=== PATIENT | female | born 1955 | race Caucasian/White ===

== ENCOUNTER 2021-06-04 15:39 | Emergency (ER) | payer MEDICARE, BC, SELFPAY ==
[2021-06-04 15:59] VITALS: BP 127/82; PULSE 77; RESP 18; TEMP 36.1; O2SAT 98
--- NOTE | 2021-06-04 16:01 | ED.UPPEXIN ---
HPI - Extremity Injury (Upper) General Chief Complaint: Extremity Injury, Upper Stated Complaint: lt hand discoloration Time Seen by Provider: 06/04/21 16:01 Source: patient and RN notes reviewed Mode of arrival: ambulatory Limitations: no limitations History of Present Illness HPI narrative: Remy is a 66-year-old female patient who ambulated into the [facility] accompanied by her . Patient states she smashed her left hand on the washer when doing laundry. Patient states she immediately had swelling and bruising to the area. Patient is on methotrexate and prednisone daily. Patient states she bruises easily. Patient has full range of motion, patient has full sensation to her distal extremity. Review of Systems Review of Systems: CONSTITUTIONAL: Denies body aches, fever, chills, or sweats. EYES: Denies visual changes, redness, or discharge. ENT: Denies rhinorrhea, congestion, sore throat, or otalgia. CARDIOVASCULAR: Denies chest pain, palpitations, or edema. RESPIRATORY: Denies cough or dyspnea. GASTROINTESTINAL: Denies abdominal pain, nausea, vomiting, or diarrhea. GENITOURINARY: Denies dysuria or hematuria. SKIN: Denies rash, itching, or wounds, swelling and bruising to left hand dorsal hand, MUSCULOSKELETAL: Denies back pain, joint pain, or myalgia. NEUROLOGIC: Denies headache, numbness, tingling, or weakness. PSYCH: Denies depression or anxiety. All systems reviewed & are unremarkable except as noted in HPI and below PMFSH Comments At time of signature, I have reviewed and agree with nursing past medical, surgical, social and family history unless otherwise noted. Please see nursing chart for further information. There is no relevant family history pertinent to the presenting complaint Exam Narrative: GENERAL: Well-appearing, well-nourished, and in no acute distress. HEAD: Normocephalic, atraumatic. EYES: EOMI. No redness or drainage. Conjunctivae normal. ENT: Mucous membranes pink and moist. Nares clear. No rhinorrhea. NECK: Normal AROM. Supple. No lymphadenopathy. CHEST: No respiratory distress. Clear to auscultation. HEART: Regular rate and rhythm. No murmur appreciated. Normal peripheral pulses. MUSCULOSKELETAL: No bony tenderness. EXTREMITIES: Normal range of motion. dark bruising from wrist to phalanges, distal sensation and movement intact. SKIN: Warm, dry, no rash. Capillary refill normal. Normal skin turgor. NEURO: No focal deficits. Alert and oriented x3. Gait steady. PSYCH: Normal affect. No signs of depression or anxiety. Course Vital Signs Vital signs: Vital Signs Temperature 36.1 C L 06/04/21 15:59 Pulse Rate 77 06/04/21 15:59 Respiratory Rate 18 06/04/21 15:59 Blood Pressure 127/82 06/04/21 15:59 Pulse Oximetry 98 06/04/21 15:59 Temperature 36.1 C L 06/04/21 15:59 Pulse Rate 77 06/04/21 15:59 Respiratory Rate 18 06/04/21 15:59 Blood Pressure 127/82 06/04/21 15:59 Pulse Oximetry 98 06/04/21 15:59 Reviewed. Pt has been instructed to follow up with her PCP regarding her elevated blood pressure today. MDM - Extremity Injury (Upper) MDM Narrative Medical decision making narrative: Patient hit her left dorsal hand on her washer. Patient is on methotrexate and prednisone. Patient has a large hematoma on the dorsal hand. Bruising and swelling extends from the wrist to fingers. Patient was instructed to leave the pressure dressing in place. Patient instructed to follow-up with her primary care physician as needed in 7 to 10 days. Patient instructed to ice and elevate the area. Differential Diagnosis Differential diagnosis: Likely sprain and strain of wrist and other (Hematoma) Medical Records Attestation: I reviewed the patient's medical records. Critical Care Time Critical Care Time Critical Care Time: No Discharge Plan Discharge Clinical Impression: Traumatic hematoma of hand Qualifiers: Encounter type: initial encounter Laterality:
== END 2021-06-04 16:26 | disposition home or self-care (01) ==
PROVIDERS: Emergency Provider Nurse Practitioner Family
DX: S60.222A Contusion of left hand, initial encounter (principal); W22.8XXA Striking against or struck by other objects, initial encounter; I11.0 Hypertensive heart disease with heart failure; I50.9 Heart failure, unspecified; K21.9 Gastro-esophageal reflux disease without esophagitis; M06.9 Rheumatoid arthritis, unspecified; E03.9 Hypothyroidism, unspecified; F41.9 Anxiety disorder, unspecified; F32.9 Major depressive disorder, single episode, unspecified
CPT/HCPCS: 99212; G0463

== ENCOUNTER 2021-08-15 11:08 | Inpatient (IN) | payer MEDICARE, BC, SELFPAY ==
--- NOTE | ~2021-08-15 | CT_ITS ---
EXAMINATION: CT cervical spine wo con DATE: 08/15/2021 11:59 INDICATION: Head injury. TECHNIQUE: Computed tomography (CT) of the cervical spine was performed without intravenous contrast. Automated exposure control and iterative reconstruction technique were employed. The dose-length pro duct was 427.40 mGy-cm. COMPARISON: None FINDINGS: There are changes of thyroidectomy. There is 2 mm anterolisthesis of C3 on C4 and 3 mm ante rolisthesis of C4 on C5. There is kyphosis of cervical spine. There is 5 degrees levocurvature of cer vical spine and 9 degrees dextrocurvature of cervical thoracic spine. Vertebral body heights are norm al. There is severely decreased disc height at C2-C3 at C3-C4, moderately decreased disc height at C4 -C5, and severely decreased disc height from C5-C6 through C6-C7 with endplate remodeling. The follow ing disc levels are specifically discussed: C2-C3: There is mild bilateral uncovertebral joint osteoarthritis. There is severe bilateral facet cholo int osteoarthritis. There is no neural foraminal stenosis. There is no central canal stenosis. C3-C4: There is severe right and mild left uncovertebral joint osteoarthritis. There is severe bilate ral facet joint osteoarthritis. There is mild bilateral neural foraminal stenosis. There is mild cent ral canal stenosis. C4-C5: There is mild bilateral uncovertebral joint osteoarthritis. There is severe bilateral facet cholo int osteoarthritis. There is mild bilateral neural foraminal stenosis. There is mild central canal st enosis. C5-C6: There is severe bilateral uncovertebral joint osteoarthritis. There is severe bilateral facet joint osteoarthritis. There is mild left neural foraminal stenosis. There is mild central canal steno sis. C6-C7: There is moderate and severe left uncovertebral joint osteoarthritis. There is mild right and severe left facet joint osteoarthritis. There is mild left neural foraminal stenosis. There is mild c entral canal stenosis. C7-T1: There is severe bilateral uncovertebral joint osteoarthritis. There is severe bilateral facet joint osteoarthritis. There is mild bilateral neural foraminal stenosis. There is mild central canal stenosis. IMPRESSION: 1. No fracture. 2. Severe cervical spondylosis. Reviewed, dictated and finalized at location A. KER MACHINE OPERATOR
--- NOTE | ~2021-08-15 | CT_ITS ---
EXAMINATION: CT pelvis wo con DATE: 08/15/2021 14:33 INDICATION: Pelvic fractures, groin pain TECHNIQUE: Computed tomography (CT) of the pelvis was performed without intravenous contrast. Automat ed exposure control and iterative reconstruction technique were employed. Exam dose: 378.35 mGy-cm t otal exam DLP. COMPARISON: 08/15/2021 pelvis and bilateral hips FINDINGS: Status post posterior and interbody surgical fusion at L4-5. There is approximately 5 mm anterolisthesis at L4-5. Severe degenerative disc disease at L5-S1. There are old fractures of bilateral superior and inferior pubic rami. There is a recent comminuted fracture of the left pubic bone medially. Normal appendix. There is a Bullock catheter within the evacuated urinary bladder. The uterus and adnexal areas are unremarkable. Mild bilateral hip osteoarthritis. IMPRESSION: Acute comminuted fracture of the left pubic bone Bilateral old superior inferior pubic ramus fractures Reviewed, dictated and finalized at Location A. Reviewed, dictated and finalized at location A. UNITY SERVICE SPECIALIST
--- NOTE | ~2021-08-15 | XR_ITS ---
EXAMINATION: XR hip BI 2V w AP pelvis DATE: 08/15/2021 11:49 INDICATION: Left groin pain. Right-sided pain. Fall. TECHNIQUE: An anteroposterior view pelvis and 2 views of each hip were obtained. COMPARISON: None. FINDINGS: There are old fractures of the bilateral superior and inferior pubic rami. There is also an acute fracture of left superior pubic ramus. There is moderate right hip osteoarthritis and mild lef t hip osteoarthritis. There are changes of anterior and posterior fusion procedures in lumbar spine. IMPRESSION: 1. Acute fracture of left superior pubic ramus. Old fractures of the bilateral superior and inferior pubic rami. 2. Moderate right hip osteoarthritis and mild left hip osteoarthritis. Reviewed, dictated and finalized at location A. ER
--- NOTE | ~2021-08-15 | CT_ITS ---
EXAMINATION: CT brain wo con DATE: 08/15/2021 11:59 INDICATION: Head injury. TECHNIQUE: Computed tomography (CT) of the head was performed without intravenous contrast. The mA wa s adjusted according to patient size. Iterative reconstruction technique was employed. The dose-lengt h product was 681.00 mGy-cm. COMPARISON: None FINDINGS: There are scattered areas of low attenuation in the cerebral white matter. There is no intr acranial hemorrhage, acute infarction, or abnormal intracranial mass lesion. The ventricles are elle l in size. The paranasal sinuses are clear. The orbits are normal. The mastoid air cells are normal. IMPRESSION: 1. Mild nonspecific cerebral white matter disease, which likely represents chronic small vessel ische lily disease. Reviewed, dictated and finalized at location A. ENCING MACHINE OPERATOR IMPRESSION: 1. Mild nonspecific cerebral white matter disease, which likely represents polarity tester genoveva small vessel ischemic disease.
--- NOTE | ~2021-08-15 | XR_ITS ---
EXAMINATION: XR chest 2V DATE: 08/17/2021 14:53 INDICATION: Hypoxia TECHNIQUE: AP and lateral views of the chest are obtained. COMPARISON: None available FINDINGS: The lungs are free of acute opacities. There is no pleural effusion or pneumothorax. Cardio megaly is noted. There is moderate thoracic spondylosis. There are lumbar compression fractures with partially imaged changes of lumbar fusion. Surgical clips are noted in the neck, likely related to th yroidectomy. IMPRESSION: 1. Cardiomegaly. Reviewed, dictated and finalized at location B. TY JAILER IMPRESSION: 1. Cardiomegaly.
[2021-08-15 11:11] VITALS: BP 148/92; PULSE 92; RESP 20; TEMP 36.7; O2SAT 100
--- NOTE | 2021-08-15 11:48 | ED.FALL ---
HPI - Fall General Chief Complaint: Fall Stated Complaint: FALL Time Seen by Provider: 08/15/21 11:24 Source: patient and RN notes reviewed Mode of arrival: EMS Limitations: no limitations History of Present Illness HPI Narrative: This is a 66 year old female who presents from home for evaluation s/p fall . Patient states she was trying to turn when she lost her balance and she fell onto her right side. She does report hitting right forehead but she denies LOC. She also denies taking chronic anticoagulation. She reports right lateral hip pain and she also reports left groin pain. She states she was unable to bear weight due to left groin pain. She also has neck pain and EMS placed patient in C collar. Related Data Home Medications Medication Instructions Recorded Confirmed bupropion HCl [Wellbutrin XL] 150 mg PO QAM 06/04/21 08/15/21 buspirone 10 mg PO BID 06/04/21 08/15/21 citalopram 40 mg PO DAILY 06/04/21 08/15/21 ergocalciferol (vitamin D2) 1,250 mcg PO WEEKLY 06/04/21 08/15/21 famotidine 40 mg PO BID 06/04/21 08/15/21 folic acid 1 mg PO DAILY 06/04/21 08/15/21 gabapentin 300 mg PO BID 06/04/21 08/15/21 hydroxychloroquine 200 mg PO BID 06/04/21 08/15/21 levothyroxine 175 mcg PO DAILY 06/04/21 08/15/21 losartan 100 mg PO DAILY 06/04/21 08/15/21 methotrexate sodium 25 mg PO WEEKLY 06/04/21 08/15/21 prednisone 5 mg PO TID 06/04/21 08/15/21 sitagliptin [Januvia] 100 mg PO DAILY 06/04/21 08/15/21 carvedilol 3.125 mg PO DAILY 08/15/21 08/15/21 midodrine 5 mg TID 08/15/21 08/15/21 Allergies Allergy/AdvReac Type Severity Reaction Status Date / Time No Known Allergies Allergy Verified 06/04/21 16:36 Review of Systems Review of Systems: All systems reviewed & are unremarkable except as noted in HPI and below PMFSH Past Medical History Medical History (Updated 08/15/21 @ 18:44 by Carmen Brito MD) Hypertension Rheumatoid arthritis Family History Family History Mother Acute myocardial infarction Mother History of blood clots Social History Social History Smoking status: Never smoker Second hand tobacco smoke exposure: No Alcohol intake: never Substance use: never Spiritual care concerns: No Exam Const: General: no acute distress and alert Orientation/consciousness: patient oriented x3 HENMT: Head: normocephalic and other (right forehead abrasion) Face and sinus: sinuses nontender and face symmetric Mouth: Yes Normal oral and palatal mucosa present, Yes lip normal, Yes oropharynx normal and Yes moist mucous membranes Eyes: EOM: EOMs intact bilaterally Chest: Chest palpation & inspection: normal inspection of the chest Other: in cervical collar Resp: Effort & Inspection: normal respiratory effort and no retractions Auscultation: clear to auscultation bilaterally Cardio: Rate: regular rate Rhythm: regular rhythm Heart sounds: no murmurs GI: GI Palp: Yes Soft to palpation, No Tenderness to palpation present (GI) and No Guarding due to palpation present (GI) Auscultation: normal bowel sounds Skin: General skin exam: normal color Rashes: no rashes Neuro: General: patient oriented x3, moves all extremities and CN's II-XI intact bilaterally Extrem: Other: palpable bilateral pedal pulses, ; right lateral hip hematoma but able to range right leg/hip/knee; unable to flex left hip due to pain but can move foot and toes distally Psych: Mental Status: mental status grossly normal Affect: normal affect Course Consultations Consultation #1: I Discussed with Mary Ann Mane about patient. She accepts to hospitalist service for rehab and pain control Date: 08/15/21 Time: 14:03 Consultation #2: I spoke with DR. Florez (Ortho). He agrees to consult and see patient tomorrow. He recommends getting CT pelvis to evaluate for additional fractures while patient is in E
[2021-08-15 12:55] LABS: Basophils Absolute Auto 0.1 K/mm3 (0.0-0.1); Basophils Percent Auto 0.3 % (0.2-1.2); Eosinophils Absolute Auto 0.2 K/mm3 (0-0.3); Hematocrit 33.7 % (37.0-47.0); Hemoglobin 10.7 g/dL (12.0-15.0); Lymphocytes Absolute Auto 1.85 K/mm3 (0.9-3.2); Lymphocytes Percent Auto 9.6 % (18.3-44.2); Mean Corpuscular HGB Conc 31.8 g/dl (32-36); Mean Corpuscular Hemoglobin 31.4 pg (26-34); Mean Corpuscular Volume 98.8 fl (80-100); Mean Platelet Volume 10.3 fl (7.4-10.4); Monocytes Absolute Auto 1.1 K/mm3 (0.1-0.6); Monocytes Percent Auto 5.7 % (2.6-8.5); Neutrophils Absolute Auto 15.9 K/mm3 (1.3-6.7); Neutrophils Percent Auto 82.4 % (45.5-73.1); Platelet Count Result 273 k/mm3 (150-375); Red Blood Count 3.41 M/mm3 (4.2-5.4); Red Cell Distribution Width 16.3 % (11.5-14.5); White Blood Count 19.3 K/mm3 (4.5-10.0)
[2021-08-15 13:12] LABS: Alanine Aminotransferase 19 U/L (4-35); Albumin Level 3.2 g/dL (3.5-5.1); Alkaline Phosphatase 37 U/L (38-126); Anion Gap 4 mmol/L (8-16); Aspartate Amino Transferase 27 U/L (14-36); Bilirubin,Total 0.6 mg/dL (0.2-1.3); Blood Urea Nitrogen 20 mg/dL (7-17); Calcium 8.2 mg/dL (8.4-10.2); Carbon Dioxide 24 mmol/L (22-30); Chloride 109 mmol/L (98-107); Estimated CRCL calculation 67 ml/min; Estimated Glomerular Filt Rate > 60; Glucose 83 mg/dL (65-110); Potassium 3.2 mmol/L (3.4-5.0); Sodium 137 mmol/L (137-145)
[2021-08-15 13:21] LABS: Add Urine Microscopic? NO; Appearance Urine Clear (Clear); Bilirubin Urine Negative (Negative); Blood Urine Negative (Negative); Color Urine Yellow (Yellow); Glucose Urine UA Negative (Negative); Ketones Urine Negative (Negative); Leukocyte Esterase Ur Negative LEU/UL (Negative); Nitrate Urine Negative (Negative); Protein Urine Negative (Negative); Specific Grav Ur 1.018 (1.001-1.035); Urobilinogen Urine Negative mg/dL (<2.0)
--- NOTE | 2021-08-15 14:56 | PCPTNOTE ---
needs to be cleared by ortho before PT can complete evaluation.
[2021-08-15 14:59] LABS: SARS-CoV-2 RNA PCR Negative
[2021-08-15] MEDS: ONDANSETRON INJ 4 MG/2 ML VIAL IV PUSH (15:05)
[2021-08-15] MEDS: MORPHINE SULFATE (*CRX) 4 MG/ML INJ IV PUSH ×3 (15:05→22:24)
[2021-08-15 16:27] VITALS: BMI 64.0
[2021-08-15 17:09] VITALS: BP 111/56; PULSE 88; RESP 20; TEMP 36.4; O2SAT 90
--- NOTE | 2021-08-15 17:28 | PC.NURSE ---
Patient Admitted from ER post fall at home. Patient elects to be a FULL CODE. The patient is being admitted for a Pelvic Fracture. Patient is alert x4 and able to make her needs known. Patient states her pain is being well managed with the IV Morphine. Call light within reach. Admit assessment completed with no major concerns.
[2021-08-15 20:44] VITALS: BP 96/54; PULSE 79; RESP 17; TEMP 37.1; O2SAT 97
[2021-08-15 20:54] VITALS: BP 115/58
--- NOTE | 2021-08-15 23:27 | PM.IMHP ---
H&P: HPI History of Present Illness Date/Time: 08/15/212229 this is a 66-year-old female patient who has had a past medical history of having pelvic fractures in the past. The patient just recently moved here from [place] a few months ago. She stated on her right home she fractured her pelvis without any falls she just heard a a crack at that time. However today the patient did have a fall she said that she is trying to turn and she lost her balance and fell on her right side. She stated that she did hit the right side of her forehead. But she denies losing consciousness. The patient denies taking any chronic anticoagulation. The patient has the old scabbed area to right lower extremity with bruises to both of her lower extremities. Patient was also complaining of neck pain and she was placed in a C-collar for EMS the patient was unable to bear weight and was having pain to her left growing area. Her white count was noted to be 19.3 H&H 10.7 and 33.7. COVID was negative. Head CT was read as mild nonspecific cerebral white matter disease which likely represents chronic small vessel ischemic disease. Hip and pelvis was read as acute fracture of the left superior pubic ramus old fractures of the bilateral superior and inferior pubic rami. Moderate right hip osteoarthritis and mild left hip osteoarthritis. Cervical spine CT was read as no fracture. Severe cervical spondylosis. CT of the pelvis was read as acute comminuted fracture of the left pelvic bone bilateral old superior inferior pubic ramus fractures. The patient was given IV Tylenol and ordered morphine for discomfort. Although there is no surgical intervention orthopedic physician has been consulted and agrees to see the patient. The patient is being admitted to observation status on the date of service of 08/15/2021. Chief Complaint: Unable to ambulate after fall Review of Systems Review of Systems: All systems reviewed & are unremarkable except as noted in HPI and below Constitutional: Constitutional: Reports as per HPI and Reports no additional constitutional complaints Eyes: Eyes: Reports as per HPI and Reports no additional eye complaints ENT: Reports system reviewed and no additional complaints, except as documented and Reports Normal hearing present Cardiovascular: Cardiovascular: Reports no additional cardiovascular complaints Respiratory: Respiratory: Reports no additional respiratory complaints and Reports no additional respiratory complaints Gastrointestinal: Gastrointestinal: Reports as per HPI and Reports no additional gastrointestinal complaints Musculoskeletal: Musculoskeletal: Reports no additional musculoskeletal complaints Integumentary/Breasts: Skin/Breast: Reports system reviewed and no additional complaints, except as docu and Reports as per HPI Neurologic: Reports system reviewed and no additional complaints, except as documented, Reports as per HPI and Reports Normal hearing present Psychiatric: Psychiatric: Reports no additional psychiatric complaints and Reports as per HPI Endocrine: Endocrine: Reports no additional endocrine complaints Hematologic/Lymphatic: Hematologic/Lymphatic: Reports no additional hematologic/lymphatic complaints Allergic/Immunologic: Allergic/Immunologic: Reports no additional allergic/immunologic complaints [facility] Past Medical History Medical History (Updated 08/15/21 @ 23:42 by Mary Ann Mane NP) Congestive heart failure Depression with anxiety DM2 (diabetes mellitus, type 2) Graves disease Hypertension Orthostatic hypertension Rheumatoid arthritis Surgical History Surgical History (Updated 08/15/21 @ 23:36 by Mary Ann Mane NP) H/O thyroidectomy H/O tubal ligation History of back surgery History of repair of hiatal hernia Family History Family History Mother Acute myocardial infarction Mother History of blood clots Social History Socia
[2021-08-15] MEDS: ACETAMINOPHEN 325 MG TABLET PO (23:58)
[2021-08-15] MEDS: diphenhydrAMINE HCl CAP 25 MG CAPSULE PO (23:58)
[2021-08-16 00:38] VITALS: O2SAT 95
[2021-08-16 04:21] VITALS: BP 100/58; PULSE 85; RESP 17; TEMP 36.9; O2SAT 90
[2021-08-16 06:07] LABS: Basophils Absolute Auto 0.1 K/mm3 (0.0-0.1); Basophils Percent Auto 0.5 % (0.2-1.2); Eosinophils Absolute Auto 0.4 K/mm3 (0-0.3); Eosinophils Percent Auto 3.3 % (0-4.4); Hematocrit 31.9 % (37.0-47.0); Hemoglobin 10.1 g/dL (12.0-15.0); Immature Granulocyte Absolute 0.09 K/mm3 (0.00-0.031); Immature Granulocyte Percent A 0.7 % (0-0.5); Lymphocytes Absolute Auto 1.77 K/mm3 (0.9-3.2); Lymphocytes Percent Auto 13.4 % (18.3-44.2); Mean Corpuscular HGB Conc 31.7 g/dl (32-36); Mean Corpuscular Hemoglobin 31.6 pg (26-34); Mean Corpuscular Volume 99.7 fl (80-100); Mean Platelet Volume 10.2 fl (7.4-10.4); Monocytes Absolute Auto 1.1 K/mm3 (0.1-0.6); Monocytes Percent Auto 8.5 % (2.6-8.5); Neutrophils Absolute Auto 9.8 K/mm3 (1.3-6.7); Neutrophils Percent Auto 73.6 % (45.5-73.1); Platelet Count Result 257 k/mm3 (150-375); Red Cell Distribution Width 16.3 % (11.5-14.5); White Blood Count 13.2 K/mm3 (4.5-10.0)
[2021-08-16 06:25] LABS: Lactic Acid Reflex 0.7 mmol/L (0.7-2.1)
[2021-08-16 06:29] LABS: Alanine Aminotransferase 16 U/L (4-35); Alkaline Phosphatase 48 U/L (38-126); Anion Gap 2 mmol/L (8-16); Aspartate Amino Transferase 24 U/L (14-36); Bilirubin,Total 0.4 mg/dL (0.2-1.3); Blood Urea Nitrogen 21 mg/dL (7-17); Calcium 8.2 mg/dL (8.4-10.2); Carbon Dioxide 25 mmol/L (22-30); Chloride 106 mmol/L (98-107); Estimated CRCL calculation 93 ml/min; Estimated Glomerular Filt Rate > 60; Glucose 104 mg/dL (65-110); Lactate Dehydrogenase 577 U/L (313-618); Magnesium 2.2 mg/dL (1.6-2.3); Potassium 3.5 mmol/L (3.4-5.0); Sodium 133 mmol/L (137-145)
[2021-08-16] MEDS: LEVOTHYROXINE SODIUM 50 MCG TABLET PO (06:29)
[2021-08-16] MEDS: LEVOTHYROXINE SODIUM 125 MCG TABLET PO (06:29)
[2021-08-16 07:14] LABS: Hemoglobin A1C 5.6 % (<5.7)
[2021-08-16 08:00] VITALS: PULSE 85; RESP 17; O2SAT 90
[2021-08-16 08:32] LABS: Glucose Point of Care 216 mg/dl (65-105)
[2021-08-16] MEDS: MIDODRINE HCL 2.5 MG TABLET 5 MG BY MOUTH ×2 (08:35→13:07)
[2021-08-16] MEDS: busPIRone HCL 10 MG TABLET PO ×2 (08:35→17:19)
[2021-08-16] MEDS: predniSONE 5 MG TABLET PO ×3 (08:35→17:21)
[2021-08-16] MEDS: CITALOPRAM HYDROBROMIDE 20 MG TABLET 40 MG PO (08:36)
[2021-08-16] MEDS: FAMOTIDINE 20 MG TABLET 40 MG PO ×2 (08:36→17:22)
[2021-08-16] MEDS: LOSARTAN POTASSIUM 100 MG TABLET PO (08:36)
[2021-08-16] MEDS: GABAPENTIN 300 MG CAPSULE PO ×2 (08:36→20:46)
[2021-08-16] MEDS: FOLIC ACID 1 MG TABLET PO (08:36)
[2021-08-16] MEDS: HYDROXYCHLOROQUINE SULFATE 200 MG TABLET PO ×2 (08:36→17:19)
[2021-08-16 08:37] VITALS: PULSE 85
[2021-08-16] MEDS: buPROPion HCL XL (24 HR) 150 MG TABCR PO (08:37)
[2021-08-16] MEDS: carvediloL 3.125 MG TABLET PO (08:37)
[2021-08-16] MEDS: MORPHINE SULFATE (*CRX) 4 MG/ML INJ IV PUSH (09:03)
--- NOTE | 2021-08-16 10:40 | PM.CNOR ---
Assessment and Plan Additional Plan patient is a 66-year-old female who I am asked to see for evaluation of her left vertical pubic body fracture at junction of the superior pubic ramus and pubic body. She sustained this injury when she fell at home yesterday. She bumped her head she had a CT scan of the head that showed no acute change. She had CT of the cervical spine that showed advanced spondylosis changes mild multilevel central canal stenosis. She had AP pelvis x-ray which demonstrated the fracture at junction of superior pubic ramus on the left and pubic body and chronic appearing fractures of all 4 pubic rami. There was subtle superior lateral joint space narrowing of the right hip and no other abnormalities. Patient has a history of osteoporosis. She has never been treated for it. She was seen a rn renal for her rheumatoid arthritis while she lived in [place] and the rheumatoid jasson just was going to start her on osteoporosis treatment but then she moved here 3 months ago and that was never initiated. Her bone density test was 1/2 years ago and she would like to get a new 1. She does take 12844 units ergocalciferol weekly. We will check a 25 hydroxy vitamin-D level to make sure that it is in the normal desired range. For her rheumatoid arthritis she takes prednisone 5 mg daily methotrexate and hydroxychloroquine. Prednisone and methotrexate have been associated with osteoporosis. She has not been taking an oral calcium supplement she states due to her only seating this and we will initiate that here in the hospital. will initiate constipation prophylaxis also Her pubic ramus fractures occurred approximately 15 years ago and these were stress fractures and not associated with trauma. There is a high likelihood of associated osteoporosis with that diagnosis. She has also had a compression fracture in her upper back. She has been using a walker at home off and on for many years due to balance problems which have been attributed to unstable blood pressure and that is being addressed with modification of her blood pressure medications. She does have a history of chronic numbness in her feet but is never noticed weakness in the lower extremities. She did have an L4-5 decompression posterior fusion with instrumentation done approximately 7 years ago. She is noted to have anemia with hemoglobin of 10.1, normal static. This may be anemia of chronic disease or other etiology and she is having iron studies done currently. White count mildly elevated at 13.2 platelets [id number]. She has a Bullock catheter in because she did not feel she could use the bedpan or get up in time to go to the bathroom. I have advised her that there is some risk of urinary tract infection if this is left in very long and it would be best for her to have this removed as soon as possible which she would like to have it in place today at least. On physical examination today she is completely alert and oriented. Looking outer her BMI is clearly not 64.0. Think there is an error in her weight documentation. We will have the nurse reweigh her and recalculate this. she has pain medial groin left hip with range of motion left hip. She has a 2+ dorsalis pedis pulse palpable normal motor function in the left foot. She denies any back pain at this time. When physical therapy gutter up earlier today she complained of severe pain in left groin which made her somewhat nauseated. She is not having any pain in her back at that time but if she starts noticing pain in her back after she is mobilized she will let us know for consideration of additional imaging there if indicated. She reports slight diminished light touch sensation feet bilaterally. She denies any other injury. Impression: Acute comminuted left pubic body fracture. Chronic fractures bilateral inferior superior pubic rami which appear to be healed. CT did not show evidence of sacral fracture. Would recommend mobilizati
[2021-08-16] MEDS: ACETAMINOPHEN 500 MG TABLET 1000 MG PO ×2 (10:59→17:22)
[2021-08-16 11:01] LABS: Thyroid Stimulating Hormone Reflex 0.251 uIU/mL (0.465-4.68)
[2021-08-16 11:35] LABS: Free T4 Free Thyroxine Reflex 1.32 ng/dL (0.78-2.19)
[2021-08-16 11:51] LABS: Glucose Point of Care 122 mg/dl (65-105)
--- NOTE | 2021-08-16 12:28 | PM.IMPN ---
Progress Note: A&P Assessment and Plan (1) Closed fracture of left superior pubic ramus: Qualifiers: Encounter type: initial encounter Qualified Code(s): S32.512A - Fracture of superior rim of left pubis, initial encounter for closed fracture Code(s): S32.512A - Fracture of superior rim of left pubis, initial encounter for closed fracture Status: Acute Assessment and Plan: Ortho consulted, continue with supportive care Light weight bearing LLE Continue with PT and OT May benefit from acute care rehab Continue with pain management (2) DM2 (diabetes mellitus, type 2): Code(s): E11.9 - Type 2 diabetes mellitus without complications Status: Chronic Assessment and Plan: Accu-Cheks AC and HS Sliding scale insulin Continue Januvia (3) Hypertension: Code(s): I10 - Essential (primary) hypertension Status: Chronic Assessment and Plan: Soft today Continue with losartan and Coreg if blood pressure allows, adjust if needed Monitor (4) Orthostatic hypertension: Code(s): I10 - Essential (primary) hypertension Status: Chronic Assessment and Plan: With weight bearing status will check orthostatic blood pressures Continue midodrine (5) Rheumatoid arthritis: Code(s): M06.9 - Rheumatoid arthritis, unspecified Status: Chronic Assessment and Plan: Continue with prednisone and hydrochloroquine for now (6) Congestive heart failure: Code(s): I50.9 - Heart failure, unspecified Status: Chronic Assessment and Plan: Compensated Continue with losartan and Coreg if her blood pressure allows (7) Depression with anxiety: Code(s): F41.8 - Other specified anxiety disorders Status: Chronic Assessment and Plan: Continue with buspirone, bupropion, and Celexa Subjective Date/time seen: 08/16/21 12:28 Interval history: Pt seen and evaluated; labs, vs, diagnostic results, consult notes reviewed; pt continues with pain with activity Review of Systems Review of Systems: All systems reviewed & are unremarkable except as noted in HPI and below Exam Const: General: no acute distress, alert and awake Orientation/consciousness: patient oriented x3 HENMT: Head: normocephalic and atraumatic Ears: hearing grossly normal bilaterally and external ears normal Face and sinus: face symmetric Mouth: Yes Normal oral and palatal mucosa present Eyes: EOM: EOMs intact bilaterally Neck: Neck: full ROM and trachea midline Chest: Chest palpation & inspection: normal inspection of the chest Resp: Effort & Inspection: normal respiratory effort Auscultation: clear to auscultation bilaterally Cardio: Jugular venous distension: no JVD Rate: regular rate Rhythm: regular rhythm Heart sounds: S1 normal heart sound present and S2 normal heart sound present GI: GI Palp: Yes Soft to palpation Auscultation: normal bowel sounds : General: Yes no CVA tenderness Back/Spine/Pelvis: Pelvis: Other pelvic findings (complains of groin pain with change in position ) Skin: General skin exam: normal color Rashes: no rashes Neuro: General: patient oriented x3, moves all extremities and no focal motor deficits Speech: normal speech Extrem: General: no clubbing, cyanosis or edema Psych: Appearance: grossly normal Affect: normal affect Judgement: Good judgement present (Psych) Objective Data Vital Signs Vital Signs: Vital Signs - 24 hr 08/15/21 17:09 08/15/21 20:44 08/15/21 20:54 Temperature 36.4 C 37.1 C Pulse Rate 88 79 Respiratory Rate 20 17 Blood Pressure 111/56 L 96/54 L 115/58 L Pulse Oximetry 90 97 08/16/21 00:38 08/16/21 04:21 08/16/21 08:00 Temperature 36.9 C Pulse Rate 85 85 Respiratory Rate 17 17 Blood Pressure 100/58 L Pulse Oximetry 95 90 90 08/16/21 08:37 Temperature Pulse Rate 85 Respiratory Rate Blood Pressure Pulse Oximetry Intake/Output Intake/Output: In
[2021-08-16] MEDS: oxyCODONE HCL (*CRX) 5 MG TAB IR PO (12:43)
[2021-08-16 12:49] LABS: Total Triiodothyronine (T3) 0.94 NG/ML (0.97-1.69)
[2021-08-16] MEDS: oxyCODONE HCL (*CRX) 2.5 MG TAB IR PO ×3 (13:07→20:45)
[2021-08-16 14:45] VITALS: BP 138/63; PULSE 108; RESP 18; TEMP 35.9; O2SAT 92
[2021-08-16 15:05] VITALS: BMI 30.9
[2021-08-16 16:54] LABS: Glucose Point of Care 153 mg/dl (65-105)
[2021-08-16] MEDS: SENNA/DOCUSATE SODIUM TABLET 2 TAB PO (17:18)
[2021-08-16 19:58] VITALS: BP 106/61; PULSE 90; RESP 17; TEMP 36.6; O2SAT 95
[2021-08-16] MEDS: diphenhydrAMINE HCl CAP 25 MG CAPSULE PO (20:45)
[2021-08-16 23:49] LABS: Glucose Point of Care 181 mg/dl (65-105)
[2021-08-17] VITALS (8 sets, daily range): BP systolic 115–142; BP diastolic 60–74; PULSE 80–102; RESP 16–18; TEMP 36.5–37.1; O2SAT 91–96
[2021-08-17] MEDS: oxyCODONE HCL (*CRX) 2.5 MG TAB IR PO ×6 (03:34→21:43)
[2021-08-17] MEDS: LEVOTHYROXINE SODIUM 50 MCG TABLET PO (06:39)
[2021-08-17] MEDS: ACETAMINOPHEN 500 MG TABLET 1000 MG PO ×3 (06:39→17:24)
[2021-08-17] MEDS: LEVOTHYROXINE SODIUM 125 MCG TABLET PO (06:40)
[2021-08-17 06:51] LABS: Hematocrit 32.2 % (37.0-47.0); Hemoglobin 9.9 g/dL (12.0-15.0); Mean Corpuscular HGB Conc 30.7 g/dl (32-36); Mean Corpuscular Hemoglobin 31.4 pg (26-34); Mean Corpuscular Volume 102.2 fl (80-100); Mean Platelet Volume 10.5 fl (7.4-10.4); Platelet Count Result 228 k/mm3 (150-375); Red Blood Count 3.15 M/mm3 (4.2-5.4); Red Cell Distribution Width 16.2 % (11.5-14.5); White Blood Count 11.9 K/mm3 (4.5-10.0)
[2021-08-17 07:11] LABS: Anion Gap 2 mmol/L (8-16); Blood Urea Nitrogen 14 mg/dL (7-17); Calcium 8.2 mg/dL (8.4-10.2); Carbon Dioxide 27 mmol/L (22-30); Chloride 105 mmol/L (98-107); Estimated CRCL calculation 93 ml/min; Estimated Glomerular Filt Rate > 60; Glucose 120 mg/dL (65-110); Potassium 3.8 mmol/L (3.4-5.0); Sodium 134 mmol/L (137-145)
[2021-08-17 07:35] LABS: Vitamin D 25 Hydroxy 27.8 ng/mL
[2021-08-17 08:05] LABS: Glucose Point of Care 114 mg/dl (65-105)
[2021-08-17] MEDS: FAMOTIDINE 20 MG TABLET 40 MG PO ×2 (08:59→16:40)
[2021-08-17] MEDS: predniSONE 5 MG TABLET PO ×3 (08:59→16:40)
[2021-08-17] MEDS: HYDROXYCHLOROQUINE SULFATE 200 MG TABLET PO ×2 (08:59→16:39)
[2021-08-17] MEDS: buPROPion HCL XL (24 HR) 150 MG TABCR PO (08:59)
[2021-08-17] MEDS: GABAPENTIN 300 MG CAPSULE PO ×2 (09:00→21:43)
[2021-08-17] MEDS: MIDODRINE HCL 2.5 MG TABLET 5 MG BY MOUTH ×3 (09:00→16:39)
[2021-08-17] MEDS: LOSARTAN POTASSIUM 100 MG TABLET PO (09:00)
[2021-08-17] MEDS: CITALOPRAM HYDROBROMIDE 20 MG TABLET 40 MG PO (09:00)
[2021-08-17] MEDS: busPIRone HCL 10 MG TABLET PO ×2 (09:00→16:40)
[2021-08-17] MEDS: carvediloL 3.125 MG TABLET PO (09:00)
[2021-08-17] MEDS: FOLIC ACID 1 MG TABLET PO (09:01)
[2021-08-17] MEDS: ENOXAPARIN 40 MG/0.4 ML SYRINGE SUB-Q (09:01)
[2021-08-17 11:56] LABS: Glucose Point of Care 155 mg/dl (65-105)
--- NOTE | 2021-08-17 12:20 | PM.PNORT ---
Subjective Subjective Date/Time Seen: 08/17/21 12:20HD 2 alert Vit D was 27. pain is better today. Was up with PT this am in chair for 1 hour. no swelling LE. pt to cont. to work with PT, Pt would like to go home if poss. rather than rehab. cont to follow <BENJAMÍN Swanson - Last Filed: 08/17/21 12:31> Objective Data Vital Signs Vital Signs: Vital Signs - 24 hr 08/16/21 14:45 08/16/21 19:58 08/17/21 04:04 Temperature 35.9 C L 36.6 C 37.1 C Pulse Rate 108 H 90 80 Respiratory Rate 18 17 17 Blood Pressure 138/63 106/61 142/72 H Pulse Oximetry 92 95 94 08/17/21 09:00 08/17/21 09:45 08/17/21 09:50 Temperature Pulse Rate 96 102 H 102 H Respiratory Rate Blood Pressure 116/65 115/60 Pulse Oximetry <BENJAMÍN Swanson - Last Filed: 08/17/21 12:31> Intake/Output Intake/Output: Intake & Output 08/14/21 08/15/21 08/16/21 08/17/21 23:59 23:59 23:59 23:59 Intake Total 400 890 640 Output Total 1650 950 Balance 400 -760 -310 <BENJAMÍN Swanson - Last Filed: 08/17/21 12:31> Meds/Results Medications: Active Medications Generic Name Dose Route Start Last Admin Trade Name Freq PRN Reason Stop Dose Admin Acetaminophen 1,000 mg 08/16/21 12:00 08/17/21 06:39 Acetaminophen 500 Mg Tablet PO 1,000 mg Q6HR LORRIE Administration Bupropion HCl 150 mg 08/16/21 09:00 08/17/21 08:59 Bupropion Hcl Xl (24 Hr) 150 Mg Tabcr PO 150 mg QAM LORRIE Administration Buspirone HCl 10 mg 08/16/21 09:00 08/17/21 09:00 Buspirone Hcl 10 Mg Tablet PO 10 mg BID LORRIE Administration Calcium Citrate 1 tablet 08/16/21 17:00 08/17/21 09:00 Calcium Citrate 315 Mg/Vitamin D 250 Units Tab PO 1 tablet BID LORRIE Administration Carvedilol 3.125 mg 08/16/21 09:00 08/17/21 09:00 Carvedilol 3.125 Mg Tablet PO 3.125 mg DAILY LORRIE Administration Citalopram Hydrobromide 40 mg 08/16/21 09:00 08/17/21 09:00 Citalopram Hydrobromide 20 Mg Tablet PO 40 mg DAILY LORRIE Administration Dextrose 12.5 gm 08/15/21 23:40 Dextrose 50% 25 Gm/50 Ml Syringe IV PUSH PRN PRN Hypoglycemia Protocol Diphenhydramine HCl 25 mg 08/15/21 21:00 08/16/21 20:45 Diphenhydramine Hcl Cap 25 Mg Capsule PO 25 mg HS LORRIE Administration Enoxaparin Sodium 40 mg 08/17/21 09:00 08/17/21 09:01 Enoxaparin 40 Mg/0.4 Ml Syringe SUB-Q 40 mg DAILY LORRIE Administration Ergocalciferol 50,000 unit 08/22/21 09:00 Ergocalciferol 50,000 Unit Capsule PO Sa@0900 LORRIE Famotidine 40 mg 08/16/21 09:00 08/17/21 08:59 Famotidine 20 Mg Tablet PO 40 mg BID LORRIE Administration Folic Acid 1 mg 08/16/21 09:00 08/17/21 09:01 Folic Acid 1 Mg Tablet PO 1 mg DAILY LORRIE Administration Gabapentin 300 mg 08/16/21 09:00 08/17/21 09:00 Gabapentin 300 Mg Capsule PO 300 mg Q12HR LORRIE Administration Glucagon 1 mg 08/15/21 23:40 Glucagon For Inj 1 Mg Vial IM PRN PRN Hypoglycemia Protocol Glucose 15 gm 08/15/21 23:40 Glucose Oral Gel 15 Gm Of Glucse In 37.5 Gm Tube PO PRN PRN Hypoglycemia Protocol Hydroxychloroquine Sulfate 200 mg 08/16/21 08:00 08/17/21 08:59 Hydroxychloroquine Sulfate 200 Mg Tablet PO 200 mg BIDWM LORRIE Administration Dextrose 1,000 mls @ 100 mls/hr 08/15/21 23:40 Dextrose 5% 1,000 Ml IVPB PRN PRN Hypoglycemia Protocol Insulin Aspart 2 - 5 units 08/16/21 08:00 08/17/21 11:56 Insulin Aspart (*Bkc) 100 Units/Ml SUB-Q Not Given TIDWM LORRIE Protocol Levothyroxine Sodium 50 mcg 08/16/21 06:30 08/17/21 06:39 Levothyroxine Sodium 50 Mcg Tablet PO 50 mcg DAILY@0630 LORRIE Administration Levothyroxine Sodium 125 mcg 08/16/21 06:30 08/17/21 06:40 Levothyroxine Sodium 125 Mcg Tablet PO 125 mcg DAILY@0630 LORRIE Administration Losartan Potassium 100 mg 08/16/21 09:00 08/17/21 09:00 Losartan Potassium 100 Mg Tablet PO 100 mg D
--- NOTE | 2021-08-17 13:31 | P.PNIM_ITS ---
Progress Note: A&P Assessment and Plan (1) Closed fracture of left superior pubic ramus: Qualifiers: Encounter type: initial encounter Qualified Code(s): S32.512A - Fracture of superior rim of left pubis, initial encounter for closed fracture Code(s): S32.512A - Fracture of superior rim of left pubis, initial encounter for closed fracture Status: Acute Assessment and Plan: Secondary to fall. * Pelvis CT showed acute comminuted fracture of the left pubic bone * Seen in consultation by Orthopedic surgery. Elective for non operative management * Continue supportive care. Analgesics available as needed * Light partial weight-bearing of the left lower extremity * Appreciate PT/OT * Patient preference is home on discharge. Acute rehab also being considered and [facility] [place]. * Vitamin D stores are insufficient and will supplement * Remove willson catheter (2) DM2 (diabetes mellitus, type 2): Code(s): E11.9 - Type 2 diabetes mellitus without complications Status: Chronic Assessment and Plan: A1c is 5.6 * Continue Accu-Cheks, sliding scale insulin, hypoglycemic protocol * Continue home Januvia (3) Hypertension: Code(s): I10 - Essential (primary) hypertension Status: Chronic Assessment and Plan: Blood pressure reviewed and has been well controlled. Last BP 115/60 * Continue losartan and carvedilol * Monitor blood pressure trends (4) Orthostatic hypertension: Code(s): I10 - Essential (primary) hypertension Status: Chronic Assessment and Plan: No documented episodes of orthostasis * No change in blood pressure today with supine to sitting position. Unable to check in standing position due to her weight-bearing status * Continue to monitor orthostatics * Fall precautions * Continue home midodrine (5) Rheumatoid arthritis: Code(s): M06.9 - Rheumatoid arthritis, unspecified Status: Chronic Assessment and Plan: No acute issues at this time * Continue prednisone and hydroxychloroquine * Methotrexate weekly (6) Congestive heart failure: Code(s): I50.9 - Heart failure, unspecified Status: Chronic Assessment and Plan: She is clinically compensated at this time * Monitor volume status closely * Continue losartan and carvedilol (7) H/O thyroidectomy: Code(s): E89.0 - Postprocedural hypothyroidism Status: Inactive Assessment and Plan: Secondary to Graves disease. * Continue levothyroxine 175 mcg daily * TSH slightly decreased with normal T4 * Continue levothyroxine at current dose at this time but she will need repeat TSH with reflex as an outpatient in 4-6 weeks. (8) Fall: Code(s): W19.XXXA - Unspecified fall, initial encounter Status: Acute Assessment and Plan: Ground level fall in her kitchen * Reported striking her head * Head CT with no acute findings * Fall precautions implemented Subjective Date/time seen: 08/17/21 13:31 Interval history: Date of service: 08/17/2021 Nicky Alexandre is a 66-year-old female with a history of CHF in your disease, rheumatoid arthritis who is seen in follow for left pubic ramus fracture following a fall. She is doing okay today. Her pain is a little bit better controlled and then states that it is starting to subside. She felt that she worked well with therapy today. She set up in the chair today for about an hour and was able to transfer
--- NOTE | 2021-08-17 13:31 | PM.IMPN ---
Progress Note: A&P Assessment and Plan (1) Closed fracture of left superior pubic ramus: Qualifiers: Encounter type: initial encounter Qualified Code(s): S32.512A - Fracture of superior rim of left pubis, initial encounter for closed fracture Code(s): S32.512A - Fracture of superior rim of left pubis, initial encounter for closed fracture Status: Acute Assessment and Plan: Secondary to fall. Pelvis CT showed acute comminuted fracture of the left pubic bone Seen in consultation by Orthopedic surgery. Elective for non operative management Continue supportive care. Analgesics available as needed Light partial weight-bearing of the left lower extremity Appreciate PT/OT Patient preference is home on discharge. Acute rehab also being considered and she was [facility] [place]. Vitamin D stores are insufficient and will supplement Remove willson catheter (2) DM2 (diabetes mellitus, type 2): Code(s): E11.9 - Type 2 diabetes mellitus without complications Status: Chronic Assessment and Plan: A1c is 5.6 Continue Accu-Cheks, sliding scale insulin, hypoglycemic protocol Continue home Januvia (3) Hypertension: Code(s): I10 - Essential (primary) hypertension Status: Chronic Assessment and Plan: Blood pressure reviewed and has been well controlled. Last BP 115/60 Continue losartan and carvedilol Monitor blood pressure trends (4) Orthostatic hypertension: Code(s): I10 - Essential (primary) hypertension Status: Chronic Assessment and Plan: No documented episodes of orthostasis No change in blood pressure today with supine to sitting position. Unable to check in standing position due to her weight-bearing status Continue to monitor orthostatics Fall precautions Continue home midodrine (5) Rheumatoid arthritis: Code(s): M06.9 - Rheumatoid arthritis, unspecified Status: Chronic Assessment and Plan: No acute issues at this time Continue prednisone and hydroxychloroquine Methotrexate weekly (6) Congestive heart failure: Code(s): I50.9 - Heart failure, unspecified Status: Chronic Assessment and Plan: She is clinically compensated at this time Monitor volume status closely Continue losartan and carvedilol (7) H/O thyroidectomy: Code(s): E89.0 - Postprocedural hypothyroidism Status: Inactive Assessment and Plan: Secondary to Graves disease. Continue levothyroxine 175 mcg daily TSH slightly decreased with normal T4 Continue levothyroxine at current dose at this time but she will need repeat TSH with reflex as an outpatient in 4-6 weeks. (8) Fall: Code(s): W19.XXXA - Unspecified fall, initial encounter Status: Acute Assessment and Plan: Ground level fall in her kitchen Reported striking her head Head CT with no acute findings Fall precautions implemented Subjective Date/time seen: 08/17/21 13:31 Interval history: Date of service: 08/17/2021 Nicky Alexandre is a 66-year-old female with a history of CHF in your disease, rheumatoid arthritis who is seen in follow for left pubic ramus fracture following a fall. She is doing okay today. Her pain is a little bit better controlled and then states that it is starting to subside. She felt that she worked well with therapy today. She set up in the chair today for about an hour and was able to transfer back to the bed. Rated her pain as 7/10 with movement. Now that she is resting comfortably in bed she rates her pain is 3/10. Also complains of some neck discomfort related to lying in bed as well as low back pain. Denies nausea, vomiting, fever, chills, dizziness, or lightheadedness. No shortness of breath. No cough or chest pain. She still has a Willson catheter in. She is hesitant about having this removed as she is concerned as she will get to the bathroom.
[2021-08-17 15:32] LABS: Influenza Control Positive
[2021-08-17 16:43] LABS: Glucose Point of Care 179 mg/dl (65-105)
[2021-08-17] MEDS: diphenhydrAMINE HCl CAP 25 MG CAPSULE PO (21:43)
[2021-08-17 21:47] LABS: Glucose Point of Care 193 mg/dl (65-105)
[2021-08-18] MEDS: ACETAMINOPHEN 500 MG TABLET 1000 MG PO ×3 (00:36→10:18)
[2021-08-18] MEDS: oxyCODONE HCL (*CRX) 2.5 MG TAB IR PO ×4 (00:37→13:59)
[2021-08-18 05:29] LABS: Hematocrit 29.5 % (37.0-47.0); Hemoglobin 9.6 g/dL (12.0-15.0); Mean Corpuscular HGB Conc 32.5 g/dl (32-36); Mean Corpuscular Volume 98.3 fl (80-100); Mean Platelet Volume 10.6 fl (7.4-10.4); Platelet Count Result 241 k/mm3 (150-375); Red Cell Distribution Width 16.1 % (11.5-14.5); White Blood Count 12.1 K/mm3 (4.5-10.0)
[2021-08-18 05:44] LABS: Anion Gap -2 mmol/L (8-16); Blood Urea Nitrogen 16 mg/dL (7-17); Calcium 8.2 mg/dL (8.4-10.2); Carbon Dioxide 31 mmol/L (22-30); Chloride 103 mmol/L (98-107); Estimated CRCL calculation 79 ml/min; Estimated Glomerular Filt Rate > 60; Glucose 135 mg/dL (65-110); Potassium 3.8 mmol/L (3.4-5.0); Sodium 132 mmol/L (137-145)
[2021-08-18 06:00] VITALS: BP 151/75; PULSE 83; RESP 16; TEMP 36.6; O2SAT 93
[2021-08-18] MEDS: LEVOTHYROXINE SODIUM 125 MCG TABLET PO (06:57)
[2021-08-18] MEDS: LEVOTHYROXINE SODIUM 50 MCG TABLET PO (06:57)
[2021-08-18 07:55] LABS: Glucose Point of Care 123 mg/dl (65-105)
[2021-08-18 10:00] VITALS: PULSE 96; RESP 16; O2SAT 92
[2021-08-18] MEDS: FOLIC ACID 1 MG TABLET PO (10:18)
[2021-08-18] MEDS: CHOLECALCIFEROL 400 UNITS TABLET (VIT D) 800 UNITS PO (10:18)
[2021-08-18] MEDS: busPIRone HCL 10 MG TABLET PO (10:18)
[2021-08-18] MEDS: GABAPENTIN 300 MG CAPSULE PO (10:20)
[2021-08-18] MEDS: predniSONE 5 MG TABLET PO ×2 (10:20→12:12)
[2021-08-18] MEDS: HYDROXYCHLOROQUINE SULFATE 200 MG TABLET PO (10:20)
[2021-08-18] MEDS: buPROPion HCL XL (24 HR) 150 MG TABCR PO (10:20)
[2021-08-18] MEDS: LOSARTAN POTASSIUM 100 MG TABLET PO (10:20)
[2021-08-18 10:21] VITALS: PULSE 65
[2021-08-18] MEDS: carvediloL 3.125 MG TABLET PO (10:21)
[2021-08-18] MEDS: FAMOTIDINE 20 MG TABLET 40 MG PO (10:21)
[2021-08-18] MEDS: CITALOPRAM HYDROBROMIDE 20 MG TABLET 40 MG PO (10:21)
[2021-08-18] MEDS: SENNA/DOCUSATE SODIUM TABLET 2 TAB PO (10:23)
[2021-08-18] MEDS: MIDODRINE HCL 2.5 MG TABLET 5 MG BY MOUTH ×2 (10:23→12:12)
[2021-08-18] MEDS: ENOXAPARIN 40 MG/0.4 ML SYRINGE SUB-Q (10:24)
[2021-08-18 12:01] LABS: Glucose Point of Care 125 mg/dl (65-105)
--- NOTE | 2021-08-18 13:37 | P.DS_ITS ---
DS: Admitting Diagnosis Discharge Date 08/18/2021 Admitting Diagnosis Fall, pelvic fracture DS: Discharge Diagnosis Discharge Diagnosis (1) Closed fracture of left superior pubic ramus: Qualifiers: Encounter type: initial encounter Qualified Code(s): S32.512A - Fracture of superior rim of left pubis, initial encounter for closed fracture Code(s): S32.512A - Fracture of superior rim of left pubis, initial encounter for closed fracture Status: Acute Assessment and Plan: Secondary to mechanical fall. * Pelvis CT showed acute comminuted fracture of the left pubic bone * Seen in consultation by Orthopedic surgery. Elected for non operative management * Supportive care provided. Continue analgesics as needed * Light partial weight-bearing of the left lower extremity * Continue PT/OT at [facility] * Vitamin D stores are insufficient. Started on vitamin-D supplementation 800 units daily * Per Orthopedic surgery, continue Lovenox injections 40 mg q24h for 5 weeks. Follow-up in 1 month (2) Hematoma of right hip: Code(s): S70.01XA - Contusion of right hip, initial encounter Status: Acute Assessment and Plan: Secondary to fall * Hemoglobin and hematocrit remained stable * Repeat CBC in 1 week (3) DM2 (diabetes mellitus, type 2): Code(s): E11.9 - Type 2 diabetes mellitus without complications Status: Chronic Assessment and Plan: A1c is 5.6 * Managed with Accu-Cheks, sliding scale insulin, hypoglycemic protocol during admission * Continue home Januvia (4) Hypertension: Code(s): I10 - Essential (primary) hypertension Status: Chronic Assessment and Plan: Blood pressure reviewed and were well controlled. * Continue losartan and carvedilol (5) Orthostatic hypertension: Code(s): I10 - Essential (primary) hypertension Status: Chronic Assessment and Plan: History of this. No issues during her hospitalization * Fall precautions implemented * Continue home midodrine (6) Rheumatoid arthritis: Code(s): M06.9 - Rheumatoid arthritis, unspecified Status: Chronic Assessment and Plan: No acute issues at this time * Continue prednisone and hydroxychloroquine * Methotrexate weekly (7) Congestive heart failure: Code(s): I50.9 - Heart failure, unspecified Status: Chronic Assessment and Plan: Remained clinically compensated * No evidence of volume overload * Continue losartan and carvedilol (8) H/O thyroidectomy: Code(s): E89.0 - Postprocedural hypothyroidism Status: Inactive Assessment and Plan: Secondary to Graves disease. * Continue levothyroxine 175 mcg daily * TSH slightly decreased with normal T4 * Continue levothyroxine at current dose at this time but she will need repeat TSH with reflex as an outpatient in 4-6 weeks. (9) Fall: Code(s): W19.XXXA - Unspecified fall, initial encounter Status: Acute Assessment and Plan: Ground level fall in her kitchen * Reported striking her head * Head CT with no acute findings * Fall precautions implemented (10) Urinary retention: Code(s): R33.9 - Retention of urine, unspecified Status: Acute Assessment and Plan: Bullock catheter initiated following pelvic fracture * Bullock removed on 08/17/21 when mobility improved * Patient failed voiding trial and Bullock catheter was restarte
--- NOTE | 2021-08-18 13:37 | PM.DS ---
DS: Admitting Diagnosis Discharge Date 08/18/2021 Admitting Diagnosis Fall, pelvic fracture DS: Discharge Diagnosis Discharge Diagnosis (1) Closed fracture of left superior pubic ramus: Qualifiers: Encounter type: initial encounter Qualified Code(s): S32.512A - Fracture of superior rim of left pubis, initial encounter for closed fracture Code(s): S32.512A - Fracture of superior rim of left pubis, initial encounter for closed fracture Status: Acute Assessment and Plan: Secondary to mechanical fall. Pelvis CT showed acute comminuted fracture of the left pubic bone Seen in consultation by Orthopedic surgery. Elected for non operative management Supportive care provided. Continue analgesics as needed Light partial weight-bearing of the left lower extremity Continue PT/OT at [facility] Vitamin D stores are insufficient. Started on vitamin-D supplementation 800 units daily Per Orthopedic surgery, continue Lovenox injections 40 mg q24h for 5 weeks. Follow-up in 1 month (2) Hematoma of right hip: Code(s): S70.01XA - Contusion of right hip, initial encounter Status: Acute Assessment and Plan: Secondary to fall Hemoglobin and hematocrit remained stable Repeat CBC in 1 week (3) DM2 (diabetes mellitus, type 2): Code(s): E11.9 - Type 2 diabetes mellitus without complications Status: Chronic Assessment and Plan: A1c is 5.6 Managed with Accu-Cheks, sliding scale insulin, hypoglycemic protocol during admission Continue home Januvia (4) Hypertension: Code(s): I10 - Essential (primary) hypertension Status: Chronic Assessment and Plan: Blood pressure reviewed and were well controlled. Continue losartan and carvedilol (5) Orthostatic hypertension: Code(s): I10 - Essential (primary) hypertension Status: Chronic Assessment and Plan: History of this. No issues during her hospitalization Fall precautions implemented Continue home midodrine (6) Rheumatoid arthritis: Code(s): M06.9 - Rheumatoid arthritis, unspecified Status: Chronic Assessment and Plan: No acute issues at this time Continue prednisone and hydroxychloroquine Methotrexate weekly (7) Congestive heart failure: Code(s): I50.9 - Heart failure, unspecified Status: Chronic Assessment and Plan: Remained clinically compensated No evidence of volume overload Continue losartan and carvedilol (8) H/O thyroidectomy: Code(s): E89.0 - Postprocedural hypothyroidism Status: Inactive Assessment and Plan: Secondary to Graves disease. Continue levothyroxine 175 mcg daily TSH slightly decreased with normal T4 Continue levothyroxine at current dose at this time but she will need repeat TSH with reflex as an outpatient in 4-6 weeks. (9) Fall: Code(s): W19.XXXA - Unspecified fall, initial encounter Status: Acute Assessment and Plan: Ground level fall in her kitchen Reported striking her head Head CT with no acute findings Fall precautions implemented (10) Urinary retention: Code(s): R33.9 - Retention of urine, unspecified Status: Acute Assessment and Plan: Bullock catheter initiated following pelvic fracture Bullock removed on 08/17/21 when mobility improved Patient failed voiding trial and Bullock catheter was restarted Continue Bullock at rehab. She will need outpatient urology follow-up DS: Summary Hospital Course Hospital Course: Date of admission: 08/15/2021 Date of discharge: 08/18/2021 Nicky Alexandre is a 66-year-old female with a history of CHF in your disease, rheumatoid arthritis who presented to the emergency department on 08/15/2021 after suffering a fall at home and was found to have a pelvic fracture. She was admitted to the hospitalist service for further evaluation and management was seen in c
[2021-08-18 14:00] VITALS: BP 139/67; PULSE 96; RESP 16; TEMP 36.2; O2SAT 96
[2021-08-18 14:23] LABS: EDCOVIDSCREEN Negative (Negative)
[2021-08-18 15:27] VITALS: O2SAT 95
== END 2021-08-18 16:17 | DRG 536 ==
LOC: ANHED 14:20 → ANH2MED 15:16
PROVIDERS: Nurse Practitioner; Nurse Practitioner Adult Health; Orthopaedic Surgery; Admitting Provider Internal Medicine; Emergency Provider General Practice; PCP Nurse Practitioner; Visit Provider Physician Assistant
DX: S32.512A Fracture of superior rim of left pubis, initial encounter for closed fracture (principal); S70.01XA Contusion of right hip, initial encounter; W18.39XA Other fall on same level, initial encounter; E11.9 Type 2 diabetes mellitus without complications; I11.0 Hypertensive heart disease with heart failure; I50.9 Heart failure, unspecified; Z20.822 Contact with and (suspected) exposure to COVID-19; E89.0 Postprocedural hypothyroidism; R33.9 Retention of urine, unspecified; M06.9 Rheumatoid arthritis, unspecified; F41.8 Other specified anxiety disorders; M81.0 Age-related osteoporosis without current pathological fracture; D63.8 Anemia in other chronic diseases classified elsewhere
CPT/HCPCS: 36415; 70450; 71046; 72125; 72192; 73521; 80048; 80053; 81003; 82306; 82728; 82948; 83036; 83605; 83615; 83735; 84439; 84443; 84480; 85025; 85027; 87426; 87804; 96365; 96374; 96375; 96376; 97110; 97162; 97166; 97530; 97535; 99285; A9270; C9803; G0378; J0131; J1650; J2270; J2405; J7512; U0003; U0005

== ENCOUNTER 2021-09-20 14:57 | Inpatient (IN) | payer MEDICARE, BC, SELFPAY ==
--- NOTE | ~2021-09-20 | CT_ITS ---
EXAMINATION: CT abdomen pelvis wo con DATE: 09/20/2021 16:10 INDICATION: Nausea, vomiting, diarrhea and weakness. Abdominal pain. TECHNIQUE: Computed tomography (CT) of the abdomen and pelvis was performed without intravenous contr ast. The dose-length product was 566.75 mGy-cm. Automated exposure control and iterative reconstructi on technique were employed. COMPARISON: CT dated 08/15/2021. FINDINGS: Bibasilar atelectasis. No trace right pleural effusion. Small pericardial effusion. Mild ca rdiomegaly. Gallbladder is distended with gallstones. The spleen, pancreas, adrenal glands and left kidney are un remarkable. There is a 2.2 cm low-density lesion exophytic from the right kidney posteriorly, likely a cyst. There are adjacent coarse calcifications no hydronephrosis. Bladder is decompressed. No renal stones. Nonobstructive bowel gas pattern. There is a severe burst fracture of L2 with retrolisthesis into the spinal canal causing spinal stenosis. This is likely chronic. Severe lumbar spondylosis. Th ere is posterior fusion at L4-5. There is a healing comminuted fracture of the left pubic symphysis. There are bilateral chronic fractures of the superior and inferior pubic rami. IMPRESSION: 1. Gallbladder distention with gallstones. Consider cholecystitis in the appropriate clinical setting . 2: Burst fracture of L2 with associated spinal stenosis, likely chronic. Multiple pelvic fractures re identified. 3: Small right pleural effusion. 4: Small pericardial effusion. Reviewed, dictated and finalized at location A. NESS PERFORMANCE ADVISOR IMPRESSION: 1. Gallbladder distention with gallstones. Consider cholecystitis in the approp riate clinical setting. 2: Burst fracture of L2 with associated spinal stenosis, likely chronic. Multip le pelvic fractures reidentified. 3: Small right pleural effusion. 4: Small pericardial effusion.
--- NOTE | ~2021-09-20 | US_ITS ---
EXAMINATION: US renal BI DATE: 09/21/2021 17:25 INDICATION: Acute renal insufficiency TECHNIQUE: Multiple ultrasound grayscale images of the kidneys were obtained. COMPARISON: None. FINDINGS: The right kidney measures 13.0 x 4.5 x 5.7 cm. The left kidney measures 4.7 x 3.7 x 6.0 cm. The kidne ys demonstrate normal echogenicity. The region of the small calcification and exophytic lesion at the posterolateral right kidney is not clearly visualized on the provided images, likely obscured by sha dowing from the adjacent ribs. There is no hydronephrosis in either kidney. No stones identified. Th e bladder is normal. IMPRESSION: 1. Region of the exophytic lesion at the upper pole of the right kidney seen on prior CT is obscured by shadowing ribs. The visualized kidneys are normal with no hydronephrosis. Would recommend further evaluation with either pre and postcontrast MRI or CT if renal function permits, otherwise would con senior professional services consultant noncontrast MRI. Reviewed, dictated and finalized at location A. OVERHAULER IMPRESSION: 1. Region of the exophytic lesion at the upper pole of the right kidney seen o n prior CT is obscured by shadowing ribs. The visualized kidneys are normal wit h no hydronephrosis. Would recommend further evaluation with either pre and pos tcontrast MRI or CT if renal function permits, otherwise would consider noncont rast MRI.
--- NOTE | ~2021-09-20 | XR_ITS ---
EXAMINATION: XR chest 2V DATE: 09/22/2021 11:20 INDICATION: Hypoxia TECHNIQUE: AP and lateral views of the chest are obtained. COMPARISON: 09/20/2021 FINDINGS: Cardiomegaly is noted. There are mild perihilar opacities. Small pleural effusions are pres ent. Bibasilar airspace opacities are present, likely atelectasis. There is no pneumothorax. There is mild thoracic spondylosis. IMPRESSION: 1. Cardiomegaly with likely moderate pulmonary edema. 2. Small pleural effusions. Reviewed, dictated and finalized at location B. INSTRUCTOR
--- NOTE | ~2021-09-20 | NM_ITS ---
EXAMINATION: NM hepatobiliary w pharm DATE: 09/21/2021 14:08 INDICATION: Abdominal pain. COMPARISON: CT abdomen and pelvis 09/20/2021 TECHNIQUE: 4 mCi Tc-99m mebrofenin (Choletec) was administered intravenously. Scintigraphic images o f the abdomen were obtained for one hour. Then, 3 mcg sincalide (Kinevac) IV was administered, and im aging was continued for 30 minutes. FINDINGS: There is delayed clearance of radiotracer from the blood pool. There is homogeneous tracer uptake by the liver. Activity progresses to the bowel and gallbladder. Gallbladder ejection fraction (GBEF) was 8%. Note that most patients with gallbladder dysfunction have GBEF < 35%, which overlaps with the broad normal range of 10-90%. IMPRESSION: 1. Low gallbladder ejection fraction, consistent with gallbladder dysfunction and/or chronic cholecy stitis. 2. Delayed clearance of radiotracer from the blood pool, consistent with nonspecific hepatocellular d ysfunction. Reviewed, dictated and finalized at location A. RETE SMOOTHER IMPRESSION: 1. Low gallbladder ejection fraction, consistent with gallbladder dysfunction and/or chronic cholecystitis. 2. Delayed clearance of radiotracer from the blood pool, consistent with nonspe cific hepatocellular dysfunction.
--- NOTE | ~2021-09-20 | XR_ITS ---
XR chest 1V portable 09/20/2021 15:38 Indication: Fever. Recent hip surgery. Procedure: AP portable chest Comparison: 08/17/2021 Findings: Cardiomegaly. Blunting of the left lateral costophrenic recess, consistent with small effus ion. There is left basilar atelectasis. No focal pneumonia, edema or pneumothorax. There is apical pl eural thickening. There are surgical changes in the neck, consistent with prior thyroidectomy. Impression: 1: Small left pleural effusion with left basilar compressive atelectasis. 2: Cardiomegaly. Reviewed, dictated and finalized at location A. GER TAX Impression: 1: Small left pleural effusion with left basilar compressive atelectasis. 2: Cardiomegaly.
[2021-09-20 15:09] VITALS: BP 130/55; PULSE 99; RESP 18; TEMP 36.6; O2SAT 98
[2021-09-20 15:22] LABS: Glucose Point of Care 71 mg/dl (65-105)
[2021-09-20 15:26] LABS: Basophils Absolute Auto 0.2 K/mm3 (0.0-0.1); Basophils Percent Auto 0.7 % (0.2-1.2); Eosinophils Percent Auto 0.1 % (0-4.4); Hematocrit 29.7 % (37.0-47.0); Hemoglobin 9.5 g/dL (12.0-15.0); Immature Granulocyte Absolute 1.74 K/mm3 (0.00-0.031); Lymphocytes Absolute Auto 0.19 K/mm3 (0.9-3.2); Lymphocytes Percent Auto 0.9 % (18.3-44.2); Mean Corpuscular Hemoglobin 31.1 pg (26-34); Mean Corpuscular Volume 97.4 fl (80-100); Mean Platelet Volume 9.9 fl (7.4-10.4); Monocytes Absolute Auto 0.5 K/mm3 (0.1-0.6); Monocytes Percent Auto 2.4 % (2.6-8.5); Neutrophils Absolute Auto 19.2 K/mm3 (1.3-6.7); Neutrophils Percent Auto 87.9 % (45.5-73.1); Platelet Count Result 221 k/mm3 (150-375); Red Blood Count 3.05 M/mm3 (4.2-5.4); Red Cell Distribution Width 16.2 % (11.5-14.5); White Blood Count 21.9 K/mm3 (4.5-10.0)
--- NOTE | 2021-09-20 15:33 | ED.NAVMDI ---
HPI - Nausea/Vomiting/Diarrhea General Chief complaint: Nausea/Vomiting/Diarrhea <Marcelle Trevizo PA-C - Last Filed: 09/20/21 17:39> Stated complaint: N/V/D <AL Torres Last Filed: 09/20/21 17:39> Time Seen by Provider: 09/20/21 15:10 <Marcelle Trevizo PA-C - Last Filed: 09/20/21 17:39> Source: patient <AL Torres Last Filed: 09/20/21 17:39> Mode of arrival: ambulatory <AL Torres Last Filed: 09/20/21 17:39> Limitations: no limitations <AL Torres Last Filed: 09/20/21 17:39> History of Present Illness HPI Narrative: This is a 66-year-old female that presents to the emergency department for nausea, vomiting and diarrhea. Ongoing over the last 5 days. Associated with fevers. Reports her daughter is sick with similar symptoms. She is COVID vaccinated. Reports she was starting to feel quite dehydrated which prompted them to bring her in for evaluation. Denies chest pain or shortness of breath. <Marcelle Trevzio PA-C - Last Filed: 09/20/21 17:39> Related Data Home medications: Home Medications Medication Instructions Recorded Confirmed Januvia 100 mg PO DAILY 06/04/21 08/21/21 bupropion HCl [Wellbutrin XL] 150 mg PO QAM 06/04/21 08/21/21 buspirone 10 mg PO BID 06/04/21 08/21/21 citalopram 40 mg PO DAILY 06/04/21 08/21/21 famotidine 40 mg PO BID 06/04/21 08/21/21 folic acid 1 mg PO DAILY 06/04/21 08/21/21 gabapentin 300 mg PO BID 06/04/21 08/21/21 hydroxychloroquine 200 mg PO BID 06/04/21 08/21/21 levothyroxine 175 mcg PO DAILY 06/04/21 08/21/21 losartan 100 mg PO DAILY 06/04/21 08/21/21 methotrexate sodium 15 mg PO WEEKLY 06/04/21 08/21/21 prednisone 5 mg PO TID 06/04/21 08/21/21 midodrine 10 mg TID 08/15/21 08/21/21 celecoxib 200 mg PO DAILY 08/21/21 08/21/21 duloxetine 40 mg PO DAILY 08/21/21 08/21/21 ergocalciferol (vitamin D2) 1,250 mcg PO WEEKLY 08/21/21 08/21/21 hydrocodone-acetaminophen 1 tablet PO BID PRN 08/21/21 08/21/21 omeprazole 40 mg PO DAILY 08/21/21 08/21/21 baclofen 10 mg PO TID 09/20/21 calcium carbonate 600 mg PO DAILY 09/20/21 cyanocobalamin (vitamin B-12) 500 mcg PO DAILY 09/20/21 <Marcelle Trevizo PA-C - Last Filed: 09/20/21 17:39> Allergies/Adverse reactions: Allergies Allergy/AdvReac Type Severity Reaction Status Date / Time No Known Allergies Allergy Verified 06/04/21 16:36 <Marcelle Trevizo PA-C - Last Filed: 09/20/21 17:39> Review of Systems Review of Systems: CONSTITUTIONAL: Reports fever CARDIOVASCULAR: Denies chest pain, or edema. RESPIRATORY: Denies cough or dyspnea. GASTROINTESTINAL: Reports abdominal pain, nausea, vomiting, and diarrhea. GENITOURINARY: Denies dysuria NEUROLOGIC: Reports generalized weakness. <Marcelle Trevizo PA-C - Last Filed: 09/20/21 17:39> All systems reviewed & are unremarkable except as noted in HPI and below <Marcelle Trevizo PA-C - Last Filed: 09/20/21 17:39> [facility] Past Medical History Medical History: Medical History (Updated 09/20/21 @ 17:37 by Marcelle Trevizo PA-C) Congestive heart failure Depression with anxiety DM2 (diabetes mellitus, type 2) Graves disease Hypertension Orthostatic hypertension Osteoporosis Rheumatoid arthritis <Marcelle Trevizo PA-C - Last Filed: 09/20/21 17:39> Surgical History Surgical History: Surgical History H/O thyroidectomy H/O tubal ligation History of back surgery History of repair of hiatal hernia <Marcelle Trevizo PA-C - Last Filed: 09/20/21 17:39> Family History Family History: Family History Mother Acute myocardial infarction Mother History of blood clots <Marcelle Trevizo PA-C - Last Filed: 09/20/21 17:39> Social History Social History: Social History Social History: The patient has 2 children.
[2021-09-20 15:36] LABS: Alanine Aminotransferase 16 U/L (4-35); Albumin Level 2.6 g/dL (3.5-5.1); Alkaline Phosphatase 140 U/L (38-126); Anion Gap 9 mmol/L (8-16); Aspartate Amino Transferase 29 U/L (14-36); Bilirubin,Total 0.6 mg/dL (0.2-1.3); Blood Urea Nitrogen 28 mg/dL (7-17); Calcium 7.6 mg/dL (8.4-10.2); Carbon Dioxide 24 mmol/L (22-30); Chloride 104 mmol/L (98-107); Estimated CRCL calculation 22 ml/min; Estimated Glomerular Filt Rate 24; Glucose 126 mg/dL (65-110); Lipase 11 U/L (23-300); Potassium 3.3 mmol/L (3.4-5.0); Sodium 137 mmol/L (137-145)
[2021-09-20] MEDS: DEXTROSE 10% 500 ML 200 ML IV CONT (16:00)
[2021-09-20 16:12] LABS: Anisocytosis 1+ (NORMAL); Platelet Estimate Adequate (Adequate)
[2021-09-20 16:13] LABS: Stomatocytes 1+ (NORMAL)
[2021-09-20 16:16] LABS: INR 1.2; Prothrombin Time 14.5 Seconds (11.1-14.7)
[2021-09-20 16:17] LABS: Partial Thromboplastin Time 42.6 SECONDS (22.3-36.8)
[2021-09-20 16:18] LABS: Add Urine Microscopic? YES; Appearance Urine Cloudy (Clear); Bacteria Urine 3+ /hpf; Bilirubin Urine Negative (Negative); Blood Urine 2+ (Negative); Color Urine Amber (Yellow); Glucose Urine UA Negative (Negative); Ketones Urine Negative (Negative); Leukocyte Esterase Ur 3+ LEU/UL (Negative); Nitrate Urine Negative (Negative); Protein Urine 3+ mg/dL (Negative); RBC Urine 51-75 /hpf (0-2); Specific Grav Ur 1.014 (1.001-1.035); Urobilinogen Urine Negative mg/dL (<2.0); WBC Urine >75 /hpf
[2021-09-20] MEDS: SODIUM CHLORIDE 0.9% IV 500 ML 999 ML IV CONT (16:30)
[2021-09-20 16:31] LABS: Lactic Acid Reflex 2.8 mmol/L (0.7-2.1)
[2021-09-20 16:33] LABS: Influenza A QL RT-PCR Negative (Negative); Influenza B QL RT-PCR Negative (Negative); SARS-CoV-2 RNA PCR Negative
[2021-09-20 16:49] LABS: Glucose Point of Care 67 mg/dl (65-105)
[2021-09-20] MEDS: PROCHLORPERAZINE EDISYLATE 10 MG/2 ML VIAL IV PUSH (16:52)
[2021-09-20 16:55] VITALS: BP 114/52; PULSE 102; RESP 18; O2SAT 93
[2021-09-20 17:00] LABS: CRP > 45.0 mg/dL (<1.0)
--- NOTE | 2021-09-20 17:45 | PM.IMHP ---
H&P: HPI History of Present Illness Date/Time: 09/20/21 17:45 Chief Complaint: Nausea, vomiting, and diarrhea. Narrative: This is a 66-year-old female with hypertension, diabetes, hypothyroidism, rheumatoid arthritis, gastroesophageal reflux disease, anemia, depression, and anxiety who presented to the emergency department for evaluation of nausea, vomiting, and diarrhea. She was admitted to the hospitalist service at the end of July with pubic rami fractures after a fall and she spent about 10 days in rehab thereafter. She seemed to be doing okay for the 1st week and was getting about the house with the aid of a walker. Since that time she has become progressively more weak and these past 5 days she has not been feeling well. It is difficult to obtain history in that regard but from what I can gather from her , the patient has been sleeping majority of the time and has complained of significant nausea and generalized abdominal discomfort. She vomits almost immediately after eating or drinking and she has had multiple episodes of diarrhea a day. Their daughter has had congestion and cough but she is a media center director school and reports that many of her students have had GI symptoms similar to what the patient is experiencing. Additionally she has had a low-grade fever up to right around 100? F. This morning she was complaining of feeling lightheaded and dizzy and her was worried that she may fall again and thought it would be best to bring her in for evaluation. Her temperature was as high as 101.9? in the emergency department and pertinent labs include a white blood cell count of 21.9, lactic acid of 2.8, CRP of greater than 45, and a creatinine of 2.10. Her urinalysis is consistent with urinary tract infection given the patient has been experiencing dysuria. A CT of the abdomen and pelvis showed gallbladder distention with gallstones and given her exam findings cholecystitis is certainly a consideration. No evidence of pneumonia on chest x-ray. Influenza A, B, and SARS-CoV-2 by PCR were all negative. Review of Systems Review of Systems: Twelve systems were reviewed. No headache or neck ache. She denies sinus congestion, rhinorrhea, otalgia, and odynophagia. She has not had chest pain, shortness breast, or cough. No melena or hematochezia. Except as documented, all other systems were reviewed and are negative. [facility] Past Medical History Medical History (Updated 09/20/21 @ 22:51 by Izabella Gallagher PA-C) Congestive heart failure Depression with anxiety Graves disease Hypertension Hypothyroidism Orthostatic hypertension Osteoporosis Rheumatoid arthritis Type 2 diabetes mellitus Surgical History Surgical History (Updated 09/20/21 @ 22:37 by Izabella Gallagher PA-C) History of back surgery History of repair of hiatal hernia History of thyroidectomy History of tubal ligation Family History Family History Mother Acute myocardial infarction Mother History of blood clots Social History Social History (Updated 09/20/21 @ 22:38 by Izabella Gallagher PA-C) Social History: The patient is and lives with her in [facility]. They have 2 children. She is retired from [employer]. Lifelong nonsmoker. No alcohol or illicit substance abuse. She designates her , Negro Alexandre, as her surrogate decision maker and she wishes to be a full code. Meds Home Medications and Allergies Home Medications Medication Instructions Recorded Confirmed Type Januvia 100 mg PO DAILY 06/04/21 09/20/21 History bupropion HCl [Wellbutrin XL] 150 mg PO QAM 06/04/21 09/20/21 History buspirone 10 mg PO BID 06/04/21 09/20/21 History citalopram 40 mg PO DAILY 06/04/21 09/20/21 History famotidine 40 mg PO BID 06/04/21 09/20/21 History folic acid 1 mg PO DAILY 06/04/21 09/20/21 History gabapentin 300 mg PO BID 06/04/21 09/20/21 History hydroxychloroquine 200 mg PO BID
[2021-09-20] MEDS: POTASSIUM CHLORIDE INJ 40 MEQ in SODIUM CHLORIDE 0.9% IV 500 ML 130 MEQ IVPB (17:53)
[2021-09-20 18:04] LABS: Glucose Point of Care 137 mg/dl (65-105)
[2021-09-20 18:30] VITALS: BP 157/84; PULSE 108; RESP 18; O2SAT 94
--- NOTE | 2021-09-20 18:48 | PC.NURSE ---
[facility] Medical states they will not receive report for the pt until after shift change.
[2021-09-20 19:21] LABS: Reflex Lactic Acid Yes or No Add Lactic
[2021-09-20 19:48] VITALS: BP 147/77; PULSE 112; RESP 16; TEMP 38.8; O2SAT 91
--- NOTE | 2021-09-20 19:55 | ADMGEN ---
This patient, Nicky Alexandre, was admitted to 2 Medical Room 242-. Patient/family oriented to hospital policies and general routines including ID bracelet, bed and alarms, visiting hours, pain management, procedures, bathroom and other care routines, personal items, smoking policy, room service/diet, and visiting hours. Information on how to activate the Rapid Response Team has been discussed. Patient/Family are encouraged to report perceived risks to care and to ask questions if they do not understand what they are told or what they should do.
[2021-09-20 19:58] VITALS: BMI 31.6
[2021-09-20 20:11] LABS: Glucose Point of Care 92 mg/dl (65-105)
[2021-09-20 20:20] LABS: Lactic Acid 2.7 mmol/L (0.7-2.1)
[2021-09-20 20:40] VITALS: TEMP 38.6
[2021-09-20 22:00] VITALS: PULSE 116; RESP 20; TEMP 37.4; O2SAT 90
[2021-09-20] MEDS: ONDANSETRON INJ 4 MG/2 ML VIAL IV PUSH (23:01)
[2021-09-20] MEDS: SODIUM CHLORIDE 0.9% IV 1,000 ML 80 ML IV CONT (23:01)
[2021-09-20] MEDS: MORPHINE SULFATE (*CRX) 2 MG/ML INJ IV PUSH (23:01)
[2021-09-20 23:26] LABS: Anion Gap 8 mmol/L (8-16); Blood Urea Nitrogen 26 mg/dL (7-17); Calcium 7.4 mg/dL (8.4-10.2); Carbon Dioxide 21 mmol/L (22-30); Chloride 108 mmol/L (98-107); Creatine Kinase 25 U/L (30-135); Estimated CRCL calculation 24 ml/min; Estimated Glomerular Filt Rate 27; Glucose 95 mg/dL (65-110); Magnesium 1.7 mg/dL (1.6-2.3); Potassium 3.6 mmol/L (3.4-5.0); Sodium 137 mmol/L (137-145)
[2021-09-21 04:31] VITALS: BP 112/56; PULSE 87; RESP 16; TEMP 36.8; O2SAT 96
[2021-09-21 04:41] LABS: Glucose Point of Care 116 mg/dl (65-105)
[2021-09-21 05:37] LABS: Hematocrit 28.2 % (37.0-47.0); Mean Corpuscular HGB Conc 31.9 g/dl (32-36); Mean Platelet Volume 11.1 fl (7.4-10.4); Platelet Count Result 209 k/mm3 (150-375); Red Cell Distribution Width 16.8 % (11.5-14.5); White Blood Count 18.2 K/mm3 (4.5-10.0)
[2021-09-21 05:48] LABS: Alanine Aminotransferase 15 U/L (4-35); Albumin Level 2.5 g/dL (3.5-5.1); Alkaline Phosphatase 148 U/L (38-126); Anion Gap 5 mmol/L (8-16); Aspartate Amino Transferase 27 U/L (14-36); Bilirubin,Total 0.5 mg/dL (0.2-1.3); Blood Urea Nitrogen 27 mg/dL (7-17); Calcium 7.4 mg/dL (8.4-10.2); Carbon Dioxide 24 mmol/L (22-30); Chloride 107 mmol/L (98-107); Estimated CRCL calculation 23 ml/min; Estimated Glomerular Filt Rate 25; Glucose 102 mg/dL (65-110); Magnesium 1.9 mg/dL (1.6-2.3); Potassium 3.5 mmol/L (3.4-5.0); Sodium 136 mmol/L (137-145)
[2021-09-21] MEDS: LEVOTHYROXINE SODIUM 100 MCG TABLET PO (05:57)
[2021-09-21] MEDS: LEVOTHYROXINE SODIUM 75 MCG TABLET PO (05:57)
[2021-09-21] MEDS: ONDANSETRON INJ 4 MG/2 ML VIAL IV PUSH ×3 (06:04→23:14)
[2021-09-21] MEDS: MORPHINE SULFATE (*CRX) 2 MG/ML INJ IV PUSH ×2 (06:04→23:17)
[2021-09-21 06:26] LABS: Band Neutrophils Percent 11 % (0-6); Monocytes Absolute Manual 0.54 K/mm3 (0.1-0.90); Monocytes Percent Manual 3 % (3-9); Neutrophils Absolute Manual 17.65 K/mm3 (1.7-7.2); Neutrophils Percent Manual 86 % (46-73); Platelet Estimate Adequate (Adequate); Total Cells Counted 100
[2021-09-21 06:27] LABS: Anisocytosis 1+ (NORMAL); Hypochromasia 1+ (NORMAL); Poikilocytosis 1+ (NORMAL)
[2021-09-21 08:01] LABS: Glucose Point of Care 104 mg/dl (65-105)
--- NOTE | 2021-09-21 10:26 | PM.CNGS ---
Assessment and Plan Assessment and plan (1) Cholecystitis: Code(s): K81.9 - Cholecystitis, unspecified Status: Acute Assessment and Plan: CT scan reviewed and discussed with the patient in detail. There is evidence of cholelithiasis with gallbladder distention, but no other findings suggesting acute cholecystitis. The patient is having severe abdominal pain and is diffusely tender on my exam. There is a concern for acute cholecystitis being the cause of her sepsis. Will get a HIDA scan this morning to further evaluate. She would be a high-risk surgical candidate given her multiple comorbidities, sepsis, and length of symptoms. If her HIDA suggest acute cholecystitis, then we would plan on proceeding with placement of a percutaneous cholecystostomy tube. Continue IV antibiotics and NPO status for now. We will adjust her IV medications to help improve pain control. Will also add Compazine to see if this will help with her nausea. Thank you for allowing us to see the patient in consultation and we will continue to follow along with you. (2) Urinary tract infection: Qualifiers: Hematuria presence: without hematuria Urinary tract infection type: acute cystitis Qualified Code(s): N30.00 - Acute cystitis without hematuria Code(s): N39.0 - Urinary tract infection, site not specified Status: Acute Assessment and Plan: Continue IV antibiotics and management per primary service. Urine culture pending (3) Sepsis: Qualifiers: Acute renal failure type: unspecified Sepsis acute organ dysfunction status: with acute organ dysfunction Sepsis type: sepsis due to unspecified organism Severe sepsis acute organ dysfunction type: acute renal failure Severe sepsis shock status: without septic shock Qualified Code(s): A41.9 - Sepsis, unspecified organism; R65.20 - Severe sepsis without septic shock; N17.9 - Acute kidney failure, unspecified Code(s): A41.9 - Sepsis, unspecified organism Status: Acute Assessment and Plan: Sepsis criteria met on admission with leukocytosis, fever, tachycardia, and elevated lactic acid. Source unclear, urinary versus gallbladder versus combination. Urinalysis suggestive of UTI. See plan above regarding plan for cholecystitis. Continue broad-spectrum IV antibiotics, fluid resuscitation, and monitor labs. Blood cultures pending. (4) Acute kidney injury: Code(s): N17.9 - Acute kidney failure, unspecified Status: Acute Assessment and Plan: Creatinine 2.1 on admission. Continue IV fluid hydration and monitor labs. (5) Rheumatoid arthritis: Code(s): M06.9 - Rheumatoid arthritis, unspecified Status: Chronic Assessment and Plan: Agree with holding hydroxychloroquine and methotrexate given sepsis. (6) DM2 (diabetes mellitus, type 2): Code(s): E11.9 - Type 2 diabetes mellitus without complications Status: Chronic (7) Acute pericardial effusion: Code(s): I30.9 - Acute pericarditis, unspecified Status: Acute Assessment and Plan: Small pericardial effusion noted on CT. Management per primary service. (8) Hypertension: Code(s): I10 - Essential (primary) hypertension Status: Chronic (9) Hypothyroidism: Code(s): E03.9 - Hypothyroidism, unspecified Status: Acute (10) Hypokalemia: Code(s): E87.6 - Hypokalemia Status: Acute Assessment and Plan: Supplemented with KCL. K 3.5 this morning. Monitor labs. (11) Congestive heart failure: Code(s): I50.9 - Heart failure, unspecified Status: Chronic Assessment and Plan: Documented to have a hx of CHF without an echocardiogram in our records. She is from [place] and apparently moved recently. Management per Hospitalist. Would increase her risks for surgery. Additional Plan I have discussed the patient's case and plan of care with Dr. Baez. History of Present Illness Cons
[2021-09-21] MEDS: PROCHLORPERAZINE EDISYLATE 10 MG/2 ML VIAL IV PUSH (10:39)
[2021-09-21 11:57] LABS: Glucose Point of Care 119 mg/dl (65-105)
[2021-09-21] MEDS: MORPHINE SULFATE (*CRX) 4 MG/ML INJ IV PUSH ×2 (13:53→16:25)
[2021-09-21 14:00] VITALS: BP 147/82; PULSE 84; RESP 16; TEMP 36.9; O2SAT 92
[2021-09-21 14:19] VITALS: BMI 31.6
[2021-09-21] MEDS: GABAPENTIN 300 MG CAPSULE PO (16:24)
[2021-09-21] MEDS: busPIRone HCL 10 MG TABLET PO (16:24)
[2021-09-21] MEDS: predniSONE 5 MG TABLET PO (16:24)
[2021-09-21 16:32] LABS: Glucose Point of Care 114 mg/dl (65-105)
--- NOTE | 2021-09-21 16:36 | P.PNIM_ITS ---
Progress Note: A&P Assessment and Plan (1) Sepsis: Qualifiers: Acute renal failure type: unspecified Sepsis acute organ dysfunction status: with acute organ dysfunction Sepsis type: sepsis due to unspecified or ganism Severe sepsis acute organ dysfunction type: acute renal failure Severe sepsis shock status: without septic shock Qualified Code(s): A41.9 - Sepsis, unspecified organism; R65.20 - Severe sepsis without septic shock; N17.9 - Acute kidney failure, unspecified Code(s): A41.9 - Sepsis, unspecified organism Status: Acute Assessment and Plan: Patient septic on admission with fever, leukocytosis, lactic acidosis, and MERCEDEZ related to sepsis. Source of infection UTI vs acute cholecystitis or combination * Lactic acid levels have normalized * Leukocytosis mildly improved * T-max at this facility 101.9. Patient is afebrile today * Preliminary blood cultures with Gram variable bacilli * Continue Zosyn * Will add Unasyn (renally dosed) for Gram-positive coverage while awaiting further identification from blood cultures * Vancomycin avoided due to patient's acute kidney failure (2) Urinary tract infection: Qualifiers: Hematuria presence: without hematuria Urinary tract infection type: acute cystitis Qualified Code(s): N30.00 - Acute cystitis without hematuria Code(s): N39.0 - Urinary tract infection, site not specified Status: Acute Assessment and Plan: Urine culture is pending * Continue IV Zosyn and Unasyn while awaiting final cultures (3) Acute kidney injury: Code(s): N17.9 - Acute kidney failure, unspecified Status: Acute Assessment and Plan: Multifactorial in etiology to include sepsis and hypovolemia from dehydration in the setting of losartan and Celebrex use. * Creatinine baseline is 0.5-0.7. Creatinine on presentation was 2.1 * Minimal improvement today with creatinine 2.0 * Continue with cautious IV fluid rehydration, monitoring volume status closely in light of patient's history of CHF * Consider nephrology consultation if worsening/no further improvement * Will obtain renal ultrasound * Hold losartan. * Renally dose medications and avoid nephrotoxins (4) Cholecystitis: Code(s): K81.9 - Cholecystitis, unspecified Status: Acute Assessment and Plan: CT of the abdomen and pelvis shows gallbladder distention with gallstones * Patient reports diffuse abdominal pain * HIDA scan today showed low gallbladder ejection fraction consistent with gallbladder dysfunction and/or chronic cholecystitis * Appreciate general surgery consultation * Advanced to clear liquid diet per General surgery * Continue IV Zosyn (5) Hypokalemia: Code(s): E87.6 - Hypokalemia Status: Acute Assessment and Plan: Resolved. Potassium is 3.5 today (6) Hypoglycemia: Code(s): E16.2 - Hypoglycemia, unspecified Status: Acute Assessment and Plan: Random glucose was reportedly in the mid 60s in the emergency department though this is not documented in her electronic medical records. Continue Accu-Cheks and hypoglycemic protocol. (7) Rheumatoid arthritis: Code(s): M06.9 - Rheumatoid arthritis, unspecified Status: Chronic Assessment and Plan: No acute issues. * Hydroxychloroquine and methotrexate on hold given sepsis. (8) Hypertension: Code(s): I10 - Essential (primary) hypertension Status: Chronic Assessment and Plan: Blood pressures were reviewed and they are
--- NOTE | 2021-09-21 16:36 | PM.IMPN ---
Progress Note: A&P Assessment and Plan (1) Sepsis: Qualifiers: Acute renal failure type: unspecified Sepsis acute organ dysfunction status: with acute organ dysfunction Sepsis type: sepsis due to unspecified organism Severe sepsis acute organ dysfunction type: acute renal failure Severe sepsis shock status: without septic shock Qualified Code(s): A41.9 - Sepsis, unspecified organism; R65.20 - Severe sepsis without septic shock; N17.9 - Acute kidney failure, unspecified Code(s): A41.9 - Sepsis, unspecified organism Status: Acute Assessment and Plan: Patient septic on admission with fever, leukocytosis, lactic acidosis, and MERCEDEZ related to sepsis. Source of infection UTI vs acute cholecystitis or combination Lactic acid levels have normalized Leukocytosis mildly improved T-max at this facility 101.9. Patient is afebrile today Preliminary blood cultures with Gram variable bacilli Continue Zosyn Will add Unasyn (renally dosed) for Gram-positive coverage while awaiting further identification from blood cultures Vancomycin avoided due to patient's acute kidney failure (2) Urinary tract infection: Qualifiers: Hematuria presence: without hematuria Urinary tract infection type: acute cystitis Qualified Code(s): N30.00 - Acute cystitis without hematuria Code(s): N39.0 - Urinary tract infection, site not specified Status: Acute Assessment and Plan: Urine culture is pending Continue IV Zosyn and Unasyn while awaiting final cultures (3) Acute kidney injury: Code(s): N17.9 - Acute kidney failure, unspecified Status: Acute Assessment and Plan: Multifactorial in etiology to include sepsis and hypovolemia from dehydration in the setting of losartan and Celebrex use. Creatinine baseline is 0.5-0.7. Creatinine on presentation was 2.1 Minimal improvement today with creatinine 2.0 Continue with cautious IV fluid rehydration, monitoring volume status closely in light of patient's history of CHF Consider nephrology consultation if worsening/no further improvement Will obtain renal ultrasound Hold losartan. Renally dose medications and avoid nephrotoxins (4) Cholecystitis: Code(s): K81.9 - Cholecystitis, unspecified Status: Acute Assessment and Plan: CT of the abdomen and pelvis shows gallbladder distention with gallstones Patient reports diffuse abdominal pain HIDA scan today showed low gallbladder ejection fraction consistent with gallbladder dysfunction and/or chronic cholecystitis Appreciate general surgery consultation Advanced to clear liquid diet per General surgery Continue IV Zosyn (5) Hypokalemia: Code(s): E87.6 - Hypokalemia Status: Acute Assessment and Plan: Resolved. Potassium is 3.5 today (6) Hypoglycemia: Code(s): E16.2 - Hypoglycemia, unspecified Status: Acute Assessment and Plan: Random glucose was reportedly in the mid 60s in the emergency department though this is not documented in her electronic medical records. Continue Accu-Cheks and hypoglycemic protocol. (7) Rheumatoid arthritis: Code(s): M06.9 - Rheumatoid arthritis, unspecified Status: Chronic Assessment and Plan: No acute issues. Hydroxychloroquine and methotrexate on hold given sepsis. (8) Hypertension: Code(s): I10 - Essential (primary) hypertension Status: Chronic Assessment and Plan: Blood pressures were reviewed and they are stable. Last BP 147/82 Monitor closely as losartan is being held due to acute kidney injury. (9) Hypothyroidism: Code(s): E03.9 - Hypothyroidism, unspecified Status: Acute Assessment and Plan: TSH is within normal limits Continue levothyroxine (10) Type 2 diabetes mellitus: Code(s): E11.9 - Type 2 diabetes mellitus without complications Status: Acute Assessment and
[2021-09-21] MEDS: AMPICILLIN SULB 3 GM/NS 100 ML 3 GM/100 ML VIAL IVPB (18:14)
[2021-09-21 20:00] VITALS: PULSE 101; RESP 22; O2SAT 95
[2021-09-21 20:08] VITALS: BP 120/70; PULSE 101; RESP 22; TEMP 36.4; O2SAT 95
[2021-09-21] MEDS: SODIUM CHLORIDE 0.9% IV 1,000 ML 80 ML IV CONT (20:38)
[2021-09-21 21:02] LABS: Glucose Point of Care 155 mg/dl (65-105)
[2021-09-22] VITALS (8 sets, daily range): BP systolic 110–136; BP diastolic 66–90; PULSE 102–122; RESP 18; TEMP 36–36.8; O2SAT 87–96
[2021-09-22] MEDS: MORPHINE SULFATE (*CRX) 4 MG/ML INJ IV PUSH ×2 (01:06→04:20)
[2021-09-22] MEDS: AMPICILLIN SULB 3 GM/NS 100 ML 3 GM/100 ML VIAL IVPB (05:34)
[2021-09-22] MEDS: LEVOTHYROXINE SODIUM 100 MCG TABLET PO (05:37)
[2021-09-22] MEDS: LEVOTHYROXINE SODIUM 75 MCG TABLET PO (05:37)
[2021-09-22 05:52] LABS: Hematocrit 32.1 % (37.0-47.0); Hemoglobin 9.9 g/dL (12.0-15.0); Mean Corpuscular HGB Conc 30.8 g/dl (32-36); Mean Corpuscular Hemoglobin 30.1 pg (26-34); Mean Corpuscular Volume 97.6 fl (80-100); Mean Platelet Volume 10.9 fl (7.4-10.4); Platelet Count Result 196 k/mm3 (150-375); Red Blood Count 3.29 M/mm3 (4.2-5.4); Red Cell Distribution Width 16.7 % (11.5-14.5); White Blood Count 18.3 K/mm3 (4.5-10.0)
[2021-09-22 06:08] LABS: Alanine Aminotransferase 17 U/L (4-35); Albumin Level 2.5 g/dL (3.5-5.1); Alkaline Phosphatase 164 U/L (38-126); Anion Gap 9 mmol/L (8-16); Aspartate Amino Transferase 33 U/L (14-36); Bilirubin,Total 0.5 mg/dL (0.2-1.3); Blood Urea Nitrogen 25 mg/dL (7-17); Carbon Dioxide 20 mmol/L (22-30); Chloride 108 mmol/L (98-107); Estimated CRCL calculation 33 ml/min; Estimated Glomerular Filt Rate 38; Glucose 161 mg/dL (65-110); Potassium 3.5 mmol/L (3.4-5.0); Sodium 137 mmol/L (137-145)
[2021-09-22] MEDS: ONDANSETRON INJ 4 MG/2 ML VIAL IV PUSH ×2 (06:27→15:44)
[2021-09-22 07:56] LABS: Glucose Point of Care 158 mg/dl (65-105)
[2021-09-22] MEDS: PANTOPRAZOLE 40 MG TABLET PO (08:18)
[2021-09-22] MEDS: predniSONE 5 MG TABLET PO ×3 (08:18→17:00)
[2021-09-22] MEDS: GABAPENTIN 300 MG CAPSULE PO ×2 (08:19→16:58)
[2021-09-22] MEDS: CYANOCOBALAMIN 500 MCG TABLET PO (08:19)
[2021-09-22] MEDS: CALCIUM CARBONATE (OSCAL) 500 MG TABLET PO (08:19)
[2021-09-22] MEDS: FOLIC ACID 1 MG TABLET PO (08:19)
[2021-09-22] MEDS: carvediloL 3.125 MG TABLET PO (08:20)
[2021-09-22] MEDS: DULoxetine HCL 20 MG CAPSULE.DR 40 MG PO (08:20)
[2021-09-22] MEDS: CITALOPRAM HYDROBROMIDE 20 MG TABLET 40 MG PO (08:20)
[2021-09-22] MEDS: buPROPion HCL XL (24 HR) 150 MG TABCR PO (08:20)
[2021-09-22] MEDS: busPIRone HCL 10 MG TABLET PO ×2 (08:20→16:58)
[2021-09-22] MEDS: LIDOCAINE 5% PATCH 1 PATCH TRANSDERM (08:21)
[2021-09-22] MEDS: HYDROcodone/acetaminophen (*CRX) 5-325 MG TABLET 1 TAB PO ×2 (09:37→18:25)
--- NOTE | 2021-09-22 10:15 | P.PNIM_ITS ---
Progress Note: A&P Assessment and Plan (1) Septicemia: Code(s): A41.9 - Sepsis, unspecified organism Status: Acute Assessment and Plan: Patient septic on admission with fever, leukocytosis, tachycardia, lactic acidosis, and MERCEDEZ related to sepsis. Source of infection is most likely UTI * Lactic acid levels have normalized * Leukocytosis and tachycardia persists * T-max at this facility 101.9. Afebrile today * Blood cultures with growth of E. coli in 2/2 bottles, consistent with results of urine culture * Reviewed results via phone with [employer]. Report urine culture is sensitive to Ceftriaxone; [facility] to fax results * Will begin 2 g IV ceftriaxone for bacteremia. * Await final results of blood cultures (2) Urinary tract infection: Qualifiers: Hematuria presence: without hematuria Urinary tract infection type: acute cystitis Qualified Code(s): N30.00 - Acute cystitis without hematuria Code(s): N39.0 - Urinary tract infection, site not specified Status: Acute Assessment and Plan: Urine culture with growth of >100k E. coli, sensitive to ceftriaxone * Begin ceftriaxone 2 g (3) Acute kidney injury: Code(s): N17.9 - Acute kidney failure, unspecified Status: Acute Assessment and Plan: Multifactorial in etiology to include sepsis and hypovolemia from dehydration in the setting of losartan and Celebrex use. * Creatinine baseline is 0.5-0.7. Creatinine on presentation was 2.1 * Improving today with creatinine 1.4 * Will dc IV fluids given patients new oxygen requirement and hx of CHF, renal function is improving and she is tolerating PO intake * Hold losartan. * Renally dose medications and avoid nephrotoxins (4) Cholecystitis: Code(s): K81.9 - Cholecystitis, unspecified Status: Acute Assessment and Plan: CT of the abdomen and pelvis shows gallbladder distention with gallstones * Patient reported diffuse abdominal pain - improving today * HIDA scan today showed low gallbladder ejection fraction consistent with gallbladder dysfunction and/or chronic cholecystitis * Appreciate general surgery consultation * Clear liquid diet; advance per General surgery * Starting on ceftriaxone as above, will add flagyl for coverage * Adjusted analgesics given her overall improvement as well as drowsiness on exam. Avoid/limit narcotics. (5) Hypokalemia: Code(s): E87.6 - Hypokalemia Status: Acute Assessment and Plan: Resolved. Potassium is 3.5 today (6) Rheumatoid arthritis: Code(s): M06.9 - Rheumatoid arthritis, unspecified Status: Chronic Assessment and Plan: No acute issues. * Hydroxychloroquine and methotrexate on hold given sepsis. (7) Hypertension: Code(s): I10 - Essential (primary) hypertension Status: Chronic Assessment and Plan: Blood pressures were reviewed and they are stable. Last BP 126/71 * Monitor closely as losartan is being held due to acute kidney injury. (8) Hypothyroidism: Code(s): E03.9 - Hypothyroidism, unspecified Status: Acute Assessment and Plan: TSH is within normal limits * Continue levothyroxine (9) Type 2 diabetes mellitus: Code(s): E11.9 - Type 2 diabetes mellitus without complications Status: Acute Assessment and Plan: A1c 5.7 one month ago * Patient noted to have random glucose in the 60s on presentation * Continue with low-dose sliding scale insulin as needed, Accu-Cheks, and hypoglycemi
--- NOTE | 2021-09-22 10:15 | PM.IMPN ---
Progress Note: A&P Assessment and Plan (1) Septicemia: Code(s): A41.9 - Sepsis, unspecified organism Status: Acute Assessment and Plan: Patient septic on admission with fever, leukocytosis, tachycardia, lactic acidosis, and MERCEDEZ related to sepsis. Source of infection is most likely UTI Lactic acid levels have normalized Leukocytosis and tachycardia persists T-max at this facility 101.9. Afebrile today Blood cultures with growth of E. coli in 2/2 bottles, consistent with results of urine culture Reviewed results via phone with [employer]. Report urine culture is sensitive to Ceftriaxone; [facility] to fax results Will begin 2 g IV ceftriaxone for bacteremia. Await final results of blood cultures (2) Urinary tract infection: Qualifiers: Hematuria presence: without hematuria Urinary tract infection type: acute cystitis Qualified Code(s): N30.00 - Acute cystitis without hematuria Code(s): N39.0 - Urinary tract infection, site not specified Status: Acute Assessment and Plan: Urine culture with growth of >100k E. coli, sensitive to ceftriaxone Begin ceftriaxone 2 g (3) Acute kidney injury: Code(s): N17.9 - Acute kidney failure, unspecified Status: Acute Assessment and Plan: Multifactorial in etiology to include sepsis and hypovolemia from dehydration in the setting of losartan and Celebrex use. Creatinine baseline is 0.5-0.7. Creatinine on presentation was 2.1 Improving today with creatinine 1.4 Will dc IV fluids given patients new oxygen requirement and hx of CHF, renal function is improving and she is tolerating PO intake Hold losartan. Renally dose medications and avoid nephrotoxins (4) Cholecystitis: Code(s): K81.9 - Cholecystitis, unspecified Status: Acute Assessment and Plan: CT of the abdomen and pelvis shows gallbladder distention with gallstones Patient reported diffuse abdominal pain - improving today HIDA scan today showed low gallbladder ejection fraction consistent with gallbladder dysfunction and/or chronic cholecystitis Appreciate general surgery consultation Clear liquid diet; advance per General surgery Starting on ceftriaxone as above, will add flagyl for coverage Adjusted analgesics given her overall improvement as well as drowsiness on exam. Avoid/limit narcotics. (5) Hypokalemia: Code(s): E87.6 - Hypokalemia Status: Acute Assessment and Plan: Resolved. Potassium is 3.5 today (6) Rheumatoid arthritis: Code(s): M06.9 - Rheumatoid arthritis, unspecified Status: Chronic Assessment and Plan: No acute issues. Hydroxychloroquine and methotrexate on hold given sepsis. (7) Hypertension: Code(s): I10 - Essential (primary) hypertension Status: Chronic Assessment and Plan: Blood pressures were reviewed and they are stable. Last BP 126/71 Monitor closely as losartan is being held due to acute kidney injury. (8) Hypothyroidism: Code(s): E03.9 - Hypothyroidism, unspecified Status: Acute Assessment and Plan: TSH is within normal limits Continue levothyroxine (9) Type 2 diabetes mellitus: Code(s): E11.9 - Type 2 diabetes mellitus without complications Status: Acute Assessment and Plan: A1c 5.7 one month ago Patient noted to have random glucose in the 60s on presentation Continue with low-dose sliding scale insulin as needed, Accu-Cheks, and hypoglycemic protocol. (10) Hypoxia: Code(s): R09.02 - Hypoxemia Status: Acute Assessment and Plan: Noted to be hypoxic down to 87% this morning Currently requiring 2 L supplemental O2 per nasal cannula May be related to volume overload vs atelectasis Will obtain CXR Incentive spirometry Monitor O2 saturations and wean O2 as tolerated (11) Abnormal CT scan, kidney: Code(s): R93.429 - Abnormal radiologic findings
[2021-09-22 11:53] LABS: Glucose Point of Care 187 mg/dl (65-105)
[2021-09-22] MEDS: cefTRIAXone 2 GM in SODIUM CHLORIDE 0.9% IV 100 ML 200 ML IVPB (12:29)
--- NOTE | 2021-09-22 13:10 | PM.PNGS ---
Progress Note: A&P Assessment and Plan (1) Cholecystitis: Code(s): K81.9 - Cholecystitis, unspecified Status: Acute Assessment and Plan: HIDA showed low EF of 8%, more suggestive of chronic cholecystitis. This does not appear to be the source of her sepsis. Clinically improving. Will start advancing her to a low fat diet. (2) Sepsis: Qualifiers: Acute renal failure type: unspecified Sepsis acute organ dysfunction status: with acute organ dysfunction Sepsis type: sepsis due to unspecified organism Severe sepsis acute organ dysfunction type: acute renal failure Severe sepsis shock status: without septic shock Qualified Code(s): A41.9 - Sepsis, unspecified organism; R65.20 - Severe sepsis without septic shock; N17.9 - Acute kidney failure, unspecified Code(s): A41.9 - Sepsis, unspecified organism Status: Acute Assessment and Plan: Urinary is likely the source. HIDA scan showed a low EF of 8%, but does not suggest acute cholecystitis. See plan above. Continue IV abx. Trend labs. Blood cx NGTD. IV fluids have been stopped given her respiratory issues and pulmonary edema. Management per Hospitalist. (3) Urinary tract infection: Qualifiers: Hematuria presence: without hematuria Urinary tract infection type: acute cystitis Qualified Code(s): N30.00 - Acute cystitis without hematuria Code(s): N39.0 - Urinary tract infection, site not specified Status: Acute Assessment and Plan: Urine cx growing Ecoli, abx per primary service. Additional Plan I have discussed the patient's case and plan of care with Dr. Baez. Subjective Subjective Date/Time Seen: 09/22/21 09:45 Patient reports: pain is less, flatus, bowel movement and nausea Interval history: Patient seen and examined. She appears much more comfortable when entering the room today. She reports still having some abdominal pain in the center of her abdomen, but this is much improved. She also reports the nausea has improved and she has not vomited since around 10 pm last night. She had some clear liquids for breakfast and tolerated this. She has had some new onset shortness of breath and the nurse has had to increase her oxygen to 2 liters nasal cannula. The nurse told me she had put a call out to the Hospitalist to discuss her respiratory status. Exam Const: General: comfortable, no acute distress and alert Orientation/consciousness: patient oriented x3 Resp: Effort & Inspection: tachypneic Auscultation: crackles and wheezes expiratory wheezes GI: Inspection: non-distended GI Palp: Yes Soft to palpation, Yes Tenderness to palpation present (GI) (generalized tenderness throughout), No Guarding due to palpation present (GI) and No Rebound tenderness present Auscultation: normal bowel sounds Rectal Exam: deferred Neuro: General: moves all extremities and no focal motor deficits Extrem: General: no pedal edema and no calf tenderness Psych: Insight: Good insight present (Psych) Judgement: Good judgement present (Psych) Objective Data Vital Signs Vital Signs: Vital Signs - 24 hr 09/21/21 14:00 09/21/21 20:00 09/21/21 20:08 Temperature 98.5 F 97.5 F L Pulse Rate 84 101 H 101 H Respiratory Rate 16 22 H 22 H Blood Pressure 147/82 H 120/70 Pulse Oximetry 92 95 95 09/22/21 04:12 09/22/21 04:22 09/22/21 08:16 Temperature 96.8 F L Pulse Rate 122 H 122 H Respiratory Rate 18 18 Blood Pressure 126/71 Pulse Oximetry 94 94 87 L 09/22/21 08:17 09/22/21 12:08 Temperature Pulse Rate Respiratory Rate Blood Pressure Pulse Oximetry 91 95 Intake/Output Intake/Output: Intake & Output 09/19/21 09/20/21 09/21/21 09/22/21 23:59 23:59 23:59 23:59 Intake Total 1200 1890 1386 Output Total 50 Balance 1200 1840 1386 Meds/Results Medications: Active Medications Generic Name Dose Route Start Last Admin Trade Name Freq PRN Reason Stop Dose Admin Acetaminophen
[2021-09-22] MEDS: metroNIDAZOLE 500 MG/ISO 100ML 500 MG/100 ML BAG 100 MG IVPB ×2 (14:21→21:23)
[2021-09-22 16:20] LABS: Glucose Point of Care 170 mg/dl (65-105)
[2021-09-22 21:56] LABS: Glucose Point of Care 152 mg/dl (65-105)
[2021-09-23] MEDS: HYDROcodone/acetaminophen (*CRX) 5-325 MG TABLET 1 TAB PO ×2 (00:49→08:08)
[2021-09-23 05:02] VITALS: BP 154/72; PULSE 120; RESP 20; TEMP 36.1; O2SAT 92
[2021-09-23] MEDS: metroNIDAZOLE 500 MG/ISO 100ML 500 MG/100 ML BAG 100 MG IVPB ×3 (05:06→22:25)
[2021-09-23 05:27] LABS: Hemoglobin 10.2 g/dL (12.0-15.0); Mean Corpuscular HGB Conc 31.9 g/dl (32-36); Mean Corpuscular Hemoglobin 30.3 pg (26-34); Mean Platelet Volume 11.4 fl (7.4-10.4); Platelet Count Result 230 k/mm3 (150-375); Red Blood Count 3.37 M/mm3 (4.2-5.4); Red Cell Distribution Width 16.4 % (11.5-14.5); White Blood Count 21.2 K/mm3 (4.5-10.0)
[2021-09-23 05:40] LABS: Anion Gap 8 mmol/L (8-16); Blood Urea Nitrogen 27 mg/dL (7-17); Calcium 8.7 mg/dL (8.4-10.2); Carbon Dioxide 22 mmol/L (22-30); Chloride 103 mmol/L (98-107); Estimated CRCL calculation 38 ml/min; Estimated Glomerular Filt Rate 45; Glucose 140 mg/dL (65-110); Potassium 3.7 mmol/L (3.4-5.0); Sodium 133 mmol/L (137-145)
[2021-09-23] MEDS: LEVOTHYROXINE SODIUM 75 MCG TABLET PO (06:11)
[2021-09-23] MEDS: LEVOTHYROXINE SODIUM 100 MCG TABLET PO (06:11)
[2021-09-23 07:53] LABS: Glucose Point of Care 140 mg/dl (65-105)
[2021-09-23] MEDS: ONDANSETRON INJ 4 MG/2 ML VIAL IV PUSH (08:07)
[2021-09-23] MEDS: PANTOPRAZOLE 40 MG TABLET PO (08:08)
[2021-09-23] MEDS: carvediloL 3.125 MG TABLET PO (08:08)
[2021-09-23] MEDS: FOLIC ACID 1 MG TABLET PO (08:08)
[2021-09-23] MEDS: predniSONE 5 MG TABLET PO ×3 (08:08→16:25)
[2021-09-23] MEDS: DULoxetine HCL 20 MG CAPSULE.DR 40 MG PO (08:08)
[2021-09-23] MEDS: CALCIUM CARBONATE (OSCAL) 500 MG TABLET PO (08:08)
[2021-09-23] MEDS: CYANOCOBALAMIN 500 MCG TABLET PO (08:08)
[2021-09-23] MEDS: busPIRone HCL 10 MG TABLET PO ×2 (08:08→16:25)
[2021-09-23] MEDS: CITALOPRAM HYDROBROMIDE 20 MG TABLET 40 MG PO (08:09)
[2021-09-23] MEDS: LIDOCAINE 5% PATCH 1 PATCH TRANSDERM (08:09)
[2021-09-23] MEDS: buPROPion HCL XL (24 HR) 150 MG TABCR PO (08:09)
[2021-09-23] MEDS: GABAPENTIN 300 MG CAPSULE PO ×2 (08:09→16:26)
--- NOTE | 2021-09-23 09:01 | PM.PNGS ---
Progress Note: A&P Assessment and Plan (1) Cholecystitis: Code(s): K81.9 - Cholecystitis, unspecified Status: Acute Assessment and Plan: chronic and not actively contributing to current issues, cont low fat diet, no acute surgical issues, will sign off, call c ?s, issues (2) Urinary tract infection: Qualifiers: Hematuria presence: without hematuria Urinary tract infection type: acute cystitis Qualified Code(s): N30.00 - Acute cystitis without hematuria Code(s): N39.0 - Urinary tract infection, site not specified Status: Acute Assessment and Plan: cont abx, increasing leukocytosis (3) Sepsis: Qualifiers: Acute renal failure type: unspecified Sepsis acute organ dysfunction status: with acute organ dysfunction Sepsis type: sepsis due to unspecified organism Severe sepsis acute organ dysfunction type: acute renal failure Severe sepsis shock status: without septic shock Qualified Code(s): A41.9 - Sepsis, unspecified organism; R65.20 - Severe sepsis without septic shock; N17.9 - Acute kidney failure, unspecified Code(s): A41.9 - Sepsis, unspecified organism Status: Acute Assessment and Plan: secondary to UTI, cont abx Subjective Subjective Date/Time Seen: 09/23/21 09:01 feels ok, no abd pain but poor appetite, some mild nausea Review of Systems Review of Systems: All systems reviewed & are unremarkable except as noted in HPI and below Exam Const: General: cooperative, no acute distress and ill appearing Orientation/consciousness: patient oriented x3 Resp: Auscultation: clear to auscultation bilaterally Cardio: Rate: tachycardic Rhythm: regular rhythm GI: Inspection: normal to inspection and non-distended GI Palp: Yes Soft to palpation, No Tenderness to palpation present (GI), No Guarding due to palpation present (GI) and No Rigid due to palpation Objective Data Vital Signs Vital Signs: Vital Signs - 24 hr 09/22/21 12:08 09/22/21 14:05 09/22/21 20:00 Temperature 36.4 C L Pulse Rate 102 H 105 H Respiratory Rate 18 18 Blood Pressure 136/90 Pulse Oximetry 95 95 96 09/22/21 20:31 09/23/21 05:02 Temperature 36.8 C 36.1 C L Pulse Rate 105 H 120 H Respiratory Rate 18 20 Blood Pressure 110/66 154/72 H Pulse Oximetry 96 92 Intake/Output Intake/Output: Intake & Output 09/20/21 09/21/21 09/22/21 09/23/21 23:59 23:59 23:59 23:59 Intake Total 1200 1890 2226 610 Output Total 50 500 Balance 1200 1840 1726 610 Meds/Results Medications: Active Medications Generic Name Dose Route Start Last Admin Trade Name Freq PRN Reason Stop Dose Admin Acetaminophen 650 mg 09/22/21 09:04 Acetaminophen 325 Mg Tablet PO Q4H PRN Pain 1-5 Hydrocodone Bitart/Acetaminophen 1 tab 09/22/21 09:04 09/23/21 08:08 Hydrocodone/Acetaminophen (*Crx) 5-325 Mg Tablet PO 1 tab Q6H PRN Administration Pain Rated 6-10 Bupropion HCl 150 mg 09/21/21 09:00 09/23/21 08:09 Bupropion Hcl Xl (24 Hr) 150 Mg Tabcr PO 150 mg QAM LORRIE Administration Buspirone HCl 10 mg 09/21/21 09:00 09/23/21 08:08 Buspirone Hcl 10 Mg Tablet PO 10 mg BID LORRIE Administration Calcium Carbonate 500 mg 09/21/21 09:00 09/23/21 08:08 Calcium Carbonate (Oscal) 500 Mg Tablet PO 500 mg QAM LORRIE Administration Carvedilol 3.125 mg 09/21/21 09:00 09/23/21 08:08 Carvedilol 3.125 Mg Tablet PO 3.125 mg DAILY LORRIE Administration Citalopram Hydrobromide 40 mg 09/21/21 09:00 09/23/21 08:09 Citalopram Hydrobromide 20 Mg Tablet PO 40 mg DAILY LORRIE Administration Cyanocobalamin 500 mcg 09/21/21 09:00 09/23/21 08:08 Cyanocobalamin 500 Mcg Tablet PO 500 mcg DAILY LORRIE Administration Dextrose 12.5 gm 09/20/21 17:22 Dextrose 50% 25 Gm/50 Ml Syringe IV PUSH PRN PRN Hypoglycemia Protocol Duloxetine HCl 40 mg 09/21/21 09:00 09/23/21 08:08 Duloxetine Hcl [address]Dr Isidro
--- NOTE | 2021-09-23 11:19 | WPDCDIQUERY2 ---
CDI Query Clarification Request 09/20-ER physician documented: Clinical Impression: Acute kidney injury, Hypoglycemia, Acute pericardial effusion, Acute hypokalemia -Abdomen/Pelvis CT 09/20/21 16:13 IMPRESSION: 1. Gallbladder distention with gallstones. Consider cholecystitis in the appropriate clinical setting. 2: Burst fracture of L2 with associated spinal stenosis, likely chronic. Multiple pelvic fractures reidentified. 3: Small right pleural effusion. 4: Small pericardial effusion. 09/21-General Surgery documents: -Acute pericardial effusion- - Acute pericarditis, unspecified - Assessment and Plan: -Small pericardial effusion noted on CT. Management per primary service. For coding purposes: Please clarify if diagnosis of Acute Pleural Effusion and/or Acute Pericarditis has been ruled in or ruled out or if unable to determine.
[2021-09-23] MEDS: cefTRIAXone 2 GM in SODIUM CHLORIDE 0.9% IV 100 ML 200 ML IVPB (11:20)
[2021-09-23 11:59] LABS: Glucose Point of Care 149 mg/dl (65-105)
[2021-09-23 13:38] VITALS: BP 124/75; PULSE 102; RESP 18; TEMP 36.8; O2SAT 93
--- NOTE | 2021-09-23 14:53 | P.PNIM_ITS ---
Progress Note: A&P Assessment and Plan (1) Septicemia: Code(s): A41.9 - Sepsis, unspecified organism Status: Acute Assessment and Plan: Patient septic on admission with fever, leukocytosis, tachycardia, lactic acidosis, and MERCEDEZ related to sepsis. Source of infection is most likely UTI * Lactic acid levels have normalized * Persistent leukocytosis. WBC 21.2 today * T-max at this facility 101.9. Afebrile >48 hrs * Blood cultures with growth of E. coli in 2/2 bottles, consistent with results of urine culture * Urine and blood cultures with sensitivity to Ceftriaxone * Continue 2 g IV ceftriaxone for bacteremia. * Check lactic acid, procalcitonin, and CRP (2) Urinary tract infection: Qualifiers: Hematuria presence: without hematuria Urinary tract infection type: acute cystitis Qualified Code(s): N30.00 - Acute cystitis without hematuria Code(s): N39.0 - Urinary tract infection, site not specified Status: Acute Assessment and Plan: Urine culture with growth of >100k E. coli, sensitive to ceftriaxone * Continue ceftriaxone 2 g (3) Diarrhea: Code(s): R19.7 - Diarrhea, unspecified Status: Acute Assessment and Plan: Patient with onset of incontinent watery diarrhea today * In light of increased leukocytosis, will initiate fidaxomicin and monitor the patient for progression * Begin probiotics * Monitor stool output and overall volume status (4) Acute kidney injury: Code(s): N17.9 - Acute kidney failure, unspecified Status: Acute Assessment and Plan: Multifactorial in etiology to include sepsis and hypovolemia from dehydration in the setting of losartan and Celebrex use. * Creatinine baseline is 0.5-0.7. Creatinine on presentation was 2.1 * Improving today with creatinine 1.2 * Overall improvement with IV fluids. Discontinued 09/22/2021 due to pulmonary edema. Encourage p.o. intake * Hold losartan. * Renally dose medications and avoid nephrotoxins (5) Cholecystitis: Code(s): K81.9 - Cholecystitis, unspecified Status: Acute Assessment and Plan: CT of the abdomen and pelvis shows gallbladder distention with gallstones * Patient reported diffuse abdominal pain which has not resolved * HIDA scan today showed low gallbladder ejection fraction consistent with gallbladder dysfunction and/or chronic cholecystitis * Appreciate general surgery consultation * Continue low-fat diet * Continue Flagyl * No surgical intervention required at this time. Will need outpatient follow- up. (6) Hypokalemia: Code(s): E87.6 - Hypokalemia Status: Acute Assessment and Plan: Resolved. Potassium is 3.7 today (7) Rheumatoid arthritis: Code(s): M06.9 - Rheumatoid arthritis, unspecified Status: Chronic Assessment and Plan: No acute issues. * Hydroxychloroquine and methotrexate on hold given sepsis. (8) Hypertension: Code(s): I10 - Essential (primary) hypertension Status: Chronic Assessment and Plan: Blood pressures were reviewed and they are stable. Last BP 124/75 * Monitor closely as losartan is being held due to acute kidney injury. (9) Hypothyroidism: Code(s): E03.9 - Hypothyroidism, unspecified Status: Acute Assessment and Plan: TSH is within normal limits * Continue levothyroxine (10) Type 2 diabetes mellitus: Code(s): E11.9 - Type 2 diabetes mellitus without complications Stat
--- NOTE | 2021-09-23 14:53 | PM.IMPN ---
Progress Note: A&P Assessment and Plan (1) Septicemia: Code(s): A41.9 - Sepsis, unspecified organism Status: Acute Assessment and Plan: Patient septic on admission with fever, leukocytosis, tachycardia, lactic acidosis, and MERCEDEZ related to sepsis. Source of infection is most likely UTI Lactic acid levels have normalized Persistent leukocytosis. WBC 21.2 today T-max at this facility 101.9. Afebrile >48 hrs Blood cultures with growth of E. coli in 2/2 bottles, consistent with results of urine culture Urine and blood cultures with sensitivity to Ceftriaxone Continue 2 g IV ceftriaxone for bacteremia. Check lactic acid, procalcitonin, and CRP (2) Urinary tract infection: Qualifiers: Hematuria presence: without hematuria Urinary tract infection type: acute cystitis Qualified Code(s): N30.00 - Acute cystitis without hematuria Code(s): N39.0 - Urinary tract infection, site not specified Status: Acute Assessment and Plan: Urine culture with growth of >100k E. coli, sensitive to ceftriaxone Continue ceftriaxone 2 g (3) Diarrhea: Code(s): R19.7 - Diarrhea, unspecified Status: Acute Assessment and Plan: Patient with onset of incontinent watery diarrhea today In light of increased leukocytosis, will initiate fidaxomicin and monitor the patient for progression Begin probiotics Monitor stool output and overall volume status (4) Acute kidney injury: Code(s): N17.9 - Acute kidney failure, unspecified Status: Acute Assessment and Plan: Multifactorial in etiology to include sepsis and hypovolemia from dehydration in the setting of losartan and Celebrex use. Creatinine baseline is 0.5-0.7. Creatinine on presentation was 2.1 Improving today with creatinine 1.2 Overall improvement with IV fluids. Discontinued 09/22/2021 due to pulmonary edema. Encourage p.o. intake Hold losartan. Renally dose medications and avoid nephrotoxins (5) Cholecystitis: Code(s): K81.9 - Cholecystitis, unspecified Status: Acute Assessment and Plan: CT of the abdomen and pelvis shows gallbladder distention with gallstones Patient reported diffuse abdominal pain which has not resolved HIDA scan today showed low gallbladder ejection fraction consistent with gallbladder dysfunction and/or chronic cholecystitis Appreciate general surgery consultation Continue low-fat diet Continue Flagyl No surgical intervention required at this time. Will need outpatient follow-up. (6) Hypokalemia: Code(s): E87.6 - Hypokalemia Status: Acute Assessment and Plan: Resolved. Potassium is 3.7 today (7) Rheumatoid arthritis: Code(s): M06.9 - Rheumatoid arthritis, unspecified Status: Chronic Assessment and Plan: No acute issues. Hydroxychloroquine and methotrexate on hold given sepsis. (8) Hypertension: Code(s): I10 - Essential (primary) hypertension Status: Chronic Assessment and Plan: Blood pressures were reviewed and they are stable. Last BP 124/75 Monitor closely as losartan is being held due to acute kidney injury. (9) Hypothyroidism: Code(s): E03.9 - Hypothyroidism, unspecified Status: Acute Assessment and Plan: TSH is within normal limits Continue levothyroxine (10) Type 2 diabetes mellitus: Code(s): E11.9 - Type 2 diabetes mellitus without complications Status: Acute Assessment and Plan: A1c 5.7 one month ago Patient noted to have random glucose in the 60s on presentation Continue with low-dose sliding scale insulin as needed, Accu-Cheks, and hypoglycemic protocol. (11) Abnormal CT scan, kidney: Code(s): R93.429 - Abnormal radiologic findings on diagnostic imaging of unspecified kidney Status: Acute Assessment and Plan: CT abdomen/pelvis on presentation showed 2.2 cm low-density exophyti
[2021-09-23 16:02] LABS: Lactic Acid Reflex 2.2 mmol/L (0.7-2.1)
[2021-09-23] MEDS: FUROSEMIDE INJ 40 MG/4 ML VIAL 20 MG IV PUSH (16:24)
[2021-09-23 16:25] LABS: CRP 19.6 mg/dL (<1.0)
[2021-09-23] MEDS: SACCHAROMYCES BOULARDII 250 MG CAPSULE PO (16:26)
[2021-09-23 16:31] LABS: Glucose Point of Care 197 mg/dl (65-105)
[2021-09-23 17:01] LABS: Procalcitonin 3.9 ng/mL
[2021-09-23 18:47] LABS: Reflex Lactic Acid Yes or No Add Lactic
[2021-09-23 19:16] LABS: Lactic Acid 1.8 mmol/L (0.7-2.1)
[2021-09-23 19:45] VITALS: PULSE 105; O2SAT 92
[2021-09-23 19:50] VITALS: BP 141/89; PULSE 100; RESP 16; TEMP 36.5; O2SAT 96
[2021-09-23 20:00] VITALS: O2SAT 96
[2021-09-23] MEDS: FIDAXOMICIN 200 MG TABLET PO (20:05)
[2021-09-23 20:28] LABS: Glucose Point of Care 183 mg/dl (65-105)
[2021-09-24 02:00] VITALS: O2SAT 96
[2021-09-24 05:17] LABS: Basophils Absolute Auto 0.1 K/mm3 (0.0-0.1); Basophils Percent Auto 0.4 % (0.2-1.2); Eosinophils Percent Auto 0.1 % (0-4.4); Hematocrit 30.4 % (37.0-47.0); Hemoglobin 10.1 g/dL (12.0-15.0); Immature Granulocyte Absolute 0.24 K/mm3 (0.00-0.031); Immature Granulocyte Percent A 1.3 % (0-0.5); Immature Platelet Fraction Pct 7.5 % (0.9-11.2); Lymphocytes Absolute Auto 1.06 K/mm3 (0.9-3.2); Lymphocytes Percent Auto 5.5 % (18.3-44.2); Mean Corpuscular HGB Conc 33.2 g/dl (32-36); Mean Corpuscular Hemoglobin 29.5 pg (26-34); Mean Corpuscular Volume 88.9 fl (80-100); Mean Platelet Volume 11.8 fl (7.4-10.4); Monocytes Absolute Auto 1.9 K/mm3 (0.1-0.6); Monocytes Percent Auto 9.7 % (2.6-8.5); Neutrophils Absolute Auto 15.9 K/mm3 (1.3-6.7); Nucleated Red Blood Cells Perc 0.1 % (0.0-0.2); Platelet Count Result 223 k/mm3 (150-375); Red Blood Count 3.42 M/mm3 (4.2-5.4); White Blood Count 19.1 K/mm3 (4.5-10.0)
[2021-09-24] MEDS: metroNIDAZOLE 500 MG/ISO 100ML 500 MG/100 ML BAG 100 MG IVPB ×3 (05:39→21:46)
[2021-09-24 05:55] LABS: Anion Gap 10 mmol/L (8-16); Blood Urea Nitrogen 29 mg/dL (7-17); Calcium 8.5 mg/dL (8.4-10.2); Carbon Dioxide 22 mmol/L (22-30); Chloride 103 mmol/L (98-107); Estimated CRCL calculation 49 ml/min; Estimated Glomerular Filt Rate > 60; Glucose 141 mg/dL (65-110); Potassium 3.9 mmol/L (3.4-5.0); Sodium 135 mmol/L (137-145)
[2021-09-24 06:00] VITALS: BP 119/73; PULSE 100; RESP 16; TEMP 36.7; O2SAT 91
[2021-09-24] MEDS: LEVOTHYROXINE SODIUM 75 MCG TABLET PO (06:13)
[2021-09-24] MEDS: LEVOTHYROXINE SODIUM 100 MCG TABLET PO (06:13)
[2021-09-24 07:46] LABS: CRP 15.1 mg/dL (<1.0)
[2021-09-24 07:50] LABS: Glucose Point of Care 119 mg/dl (65-105)
[2021-09-24] MEDS: predniSONE 5 MG TABLET PO ×3 (08:27→16:38)
[2021-09-24 08:28] VITALS: PULSE 113
[2021-09-24] MEDS: buPROPion HCL XL (24 HR) 150 MG TABCR PO (08:28)
[2021-09-24] MEDS: carvediloL 3.125 MG TABLET PO (08:28)
[2021-09-24] MEDS: CALCIUM CARBONATE (OSCAL) 500 MG TABLET PO (08:28)
[2021-09-24] MEDS: busPIRone HCL 10 MG TABLET PO ×2 (08:28→16:38)
[2021-09-24] MEDS: CITALOPRAM HYDROBROMIDE 20 MG TABLET 40 MG PO (08:30)
[2021-09-24] MEDS: FOLIC ACID 1 MG TABLET PO (08:31)
[2021-09-24] MEDS: DULoxetine HCL 20 MG CAPSULE.DR 40 MG PO (08:31)
[2021-09-24] MEDS: LIDOCAINE 5% PATCH 1 PATCH TRANSDERM (08:31)
[2021-09-24] MEDS: PANTOPRAZOLE 40 MG TABLET PO (08:31)
[2021-09-24] MEDS: FIDAXOMICIN 200 MG TABLET PO ×2 (08:31→20:38)
[2021-09-24] MEDS: GABAPENTIN 300 MG CAPSULE PO ×2 (08:31→16:38)
[2021-09-24] MEDS: SACCHAROMYCES BOULARDII 250 MG CAPSULE PO ×2 (08:32→16:38)
[2021-09-24] MEDS: CYANOCOBALAMIN 500 MCG TABLET PO (08:32)
--- NOTE | 2021-09-24 08:51 | PCPTNOTE ---
Patient refused treatment this session due to just getting cleaned up with nursing and would like to rest.
--- NOTE | 2021-09-24 11:04 | PCPTNOTE ---
Patient refused treatment this session due to having diarrhea this AM and patient reported she just feels weak.
[2021-09-24 11:13] LABS: Glucose Point of Care 163 mg/dl (65-105)
--- NOTE | 2021-09-24 11:35 | PCNFU ---
Addendum entered by Melinda Erickson RD, LDN 09/24/21 12:03: Call back from MD, orders for Banatrol Plus TID. Original Note: Nutrition Follow-Up Complete: Inadequate Oral Intake as related to N/V as evidenced by NPO Goal; Meet estimated nutritional needs Patient progressing towards goal. We will continue current goal. Pt current nutrition is Low Fat with Ensure Compact BID. Last recorded weight is 75.2 kg, up from 73.4 kg on admit. Bowel Motility:+BM reported 09/24-Diarrhea. Labs Reviewed:Glu 141, BUN 29, Na 135, Hct 30.4,Hgb 10.1 Meds Noted:Flagyl,Florastor,Coreg, Synthroid, Neurontin, Lidoderm,Wellbutrin,Protonix, Prednisone,Buspar, Lidoderm. Skin: WNL Additional Notes:Patient currently on Low Fat diet. Spoke with patient today, she has not been eating much of solid foods. Drinking her Ensure and drinks from her trays. She is having large amounts of diarrhea. Recommend: Banatrol Plus TID for stool bulking. Call has been placed to MD for orders. Monitoring: Will continue to monitor every 3 days.
[2021-09-24] MEDS: cefTRIAXone 2 GM in SODIUM CHLORIDE 0.9% IV 100 ML 200 ML IVPB (12:02)
--- NOTE | 2021-09-24 12:33 | PCCCNOTE ---
On 09/24/21, the student, [Lissa Garrett], provided care and completed [facility] documentation on this patient. I have reviewed the student's documentation and agree with the findings.
[2021-09-24] MEDS: LOPERAMIDE HCL 2 MG CAPSULE 4 MG PO (12:52)
--- NOTE | 2021-09-24 13:17 | PCPTNOTE ---
Patient refused treatment this session due to not feeling well.
--- NOTE | 2021-09-24 13:54 | P.PNIM_ITS ---
Progress Note: A&P Assessment and Plan (1) Septicemia: Code(s): A41.9 - Sepsis, unspecified organism Status: Acute Assessment and Plan: Patient septic on admission with fever, leukocytosis, tachycardia, lactic acidosis, and MERCEDEZ related to sepsis. Source of infection is most likely UTI * Lactic acid levels have normalized * Persistent leukocytosis. WBC 21.2 today * T-max at this facility 101.9. Afebrile >48 hrs * Blood cultures with growth of E. coli in 2/2 bottles, consistent with results of urine culture * Urine and blood cultures with sensitivity to Ceftriaxone * Continue 2 g IV ceftriaxone for bacteremia. * Continue to trend Lactic acid, CRP and Procalcitonin. (2) Urinary tract infection: Qualifiers: Hematuria presence: without hematuria Urinary tract infection type: acute cystitis Qualified Code(s): N30.00 - Acute cystitis without hematuria Code(s): N39.0 - Urinary tract infection, site not specified Status: Acute Assessment and Plan: Urine culture with growth of >100k E. coli, sensitive to ceftriaxone * Continue ceftriaxone 2 g (3) Diarrhea: Qualifiers: Diarrhea type: infectious Qualified Code(s): A09 - Infectious gastroenteritis and colitis, unspecified Code(s): R19.7 - Diarrhea, unspecified Status: Acute Assessment and Plan: Patient with onset of incontinent watery diarrhea today * In light of increased leukocytosis, will initiate fidaxomicin and monitor the patient for progression * Begin probiotics * Monitor stool output and overall volume status * Banatrol Plus is started TID by dietary. * Will continue to monitor labs and vital signs. (4) Acute kidney injury: Code(s): N17.9 - Acute kidney failure, unspecified Status: Resolved Assessment and Plan: - Resolved today with Creatinine of 0.90 and BUN of 29. GFR is >60. * Renally dose medications and avoid nephrotoxins (5) Cholecystitis: Code(s): K81.9 - Cholecystitis, unspecified Status: Acute Assessment and Plan: CT of the abdomen and pelvis shows gallbladder distention with gallstones * Patient reported diffuse abdominal pain which has not resolved * HIDA scan today showed low gallbladder ejection fraction consistent with gallbladder dysfunction and/or chronic cholecystitis * Appreciate general surgery consultation * Continue low-fat diet * Continue Flagyl * No surgical intervention required at this time. Will need outpatient follow- up. (6) Hypokalemia: Code(s): E87.6 - Hypokalemia Status: Acute Assessment and Plan: Resolved. Potassium is 3.9 today. (7) Rheumatoid arthritis: Qualifiers: Rheumatoid arthritis location: unspecified site Rheumatoid factor presence: unspecified presence Qualified Code(s): M06.9 - Rheumatoid arthritis, unspecified Code(s): M06.9 - Rheumatoid arthritis, unspecified Status: Chronic Assessment and Plan: No acute issues. * Hydroxychloroquine and methotrexate on hold given sepsis. (8) Hypertension: Qualifiers: Hypertension type: unspecified Qualified Code(s): I10 - Essential (primary) hypertension Code(s): I10 - Essential (primary) hypertension Status: Chronic Assessment and Plan: Blood pressures were reviewed and they are stable. Last BP 119/73 * Monitor closely as losartan is being held due to acute kidney injury. (9) Hypothyroidism: Qualifiers: Hypothyroidism
--- NOTE | 2021-09-24 13:54 | PM.IMPN ---
Progress Note: A&P Assessment and Plan (1) Septicemia: Code(s): A41.9 - Sepsis, unspecified organism Status: Acute Assessment and Plan: Patient septic on admission with fever, leukocytosis, tachycardia, lactic acidosis, and MERCEDEZ related to sepsis. Source of infection is most likely UTI Lactic acid levels have normalized Persistent leukocytosis. WBC 21.2 today T-max at this facility 101.9. Afebrile >48 hrs Blood cultures with growth of E. coli in 2/2 bottles, consistent with results of urine culture Urine and blood cultures with sensitivity to Ceftriaxone Continue 2 g IV ceftriaxone for bacteremia. Continue to trend Lactic acid, CRP and Procalcitonin. (2) Urinary tract infection: Qualifiers: Hematuria presence: without hematuria Urinary tract infection type: acute cystitis Qualified Code(s): N30.00 - Acute cystitis without hematuria Code(s): N39.0 - Urinary tract infection, site not specified Status: Acute Assessment and Plan: Urine culture with growth of >100k E. coli, sensitive to ceftriaxone Continue ceftriaxone 2 g (3) Diarrhea: Qualifiers: Diarrhea type: infectious Qualified Code(s): A09 - Infectious gastroenteritis and colitis, unspecified Code(s): R19.7 - Diarrhea, unspecified Status: Acute Assessment and Plan: Patient with onset of incontinent watery diarrhea today In light of increased leukocytosis, will initiate fidaxomicin and monitor the patient for progression Begin probiotics Monitor stool output and overall volume status Banatrol Plus is started TID by dietary. Will continue to monitor labs and vital signs. (4) Acute kidney injury: Code(s): N17.9 - Acute kidney failure, unspecified Status: Resolved Assessment and Plan: - Resolved today with Creatinine of 0.90 and BUN of 29. GFR is >60. Renally dose medications and avoid nephrotoxins (5) Cholecystitis: Code(s): K81.9 - Cholecystitis, unspecified Status: Acute Assessment and Plan: CT of the abdomen and pelvis shows gallbladder distention with gallstones Patient reported diffuse abdominal pain which has not resolved HIDA scan today showed low gallbladder ejection fraction consistent with gallbladder dysfunction and/or chronic cholecystitis Appreciate general surgery consultation Continue low-fat diet Continue Flagyl No surgical intervention required at this time. Will need outpatient follow-up. (6) Hypokalemia: Code(s): E87.6 - Hypokalemia Status: Acute Assessment and Plan: Resolved. Potassium is 3.9 today. (7) Rheumatoid arthritis: Qualifiers: Rheumatoid arthritis location: unspecified site Rheumatoid factor presence: unspecified presence Qualified Code(s): M06.9 - Rheumatoid arthritis, unspecified Code(s): M06.9 - Rheumatoid arthritis, unspecified Status: Chronic Assessment and Plan: No acute issues. Hydroxychloroquine and methotrexate on hold given sepsis. (8) Hypertension: Qualifiers: Hypertension type: unspecified Qualified Code(s): I10 - Essential (primary) hypertension Code(s): I10 - Essential (primary) hypertension Status: Chronic Assessment and Plan: Blood pressures were reviewed and they are stable. Last BP 119/73 Monitor closely as losartan is being held due to acute kidney injury. (9) Hypothyroidism: Qualifiers: Hypothyroidism type: unspecified Qualified Code(s): E03.9 - Hypothyroidism, unspecified Code(s): E03.9 - Hypothyroidism, unspecified Status: Acute Assessment and Plan: TSH is within normal limits Continue levothyroxine (10) Type 2 diabetes mellitus: Qualifiers: Diabetes mellitus mcfp insulin use: unspecified m[facility]p insulin use status Diabetes mellitus complication status: without complication Qualified Code(s): E1
[2021-09-24 14:59] VITALS: BP 134/78; PULSE 103; RESP 16; TEMP 36.2; O2SAT 94
[2021-09-24 16:47] LABS: Glucose Point of Care 169 mg/dl (65-105)
[2021-09-24 17:02] LABS: Glucose Point of Care 211 mg/dl (65-105)
[2021-09-24] MEDS: ACETAMINOPHEN 325 MG TABLET 650 MG PO (19:30)
[2021-09-24 19:43] VITALS: BP 131/74; PULSE 100; RESP 18; TEMP 36.4; O2SAT 91
[2021-09-24 21:08] LABS: Glucose Point of Care 191 mg/dl (65-105)
[2021-09-25 04:54] VITALS: BP 140/80; PULSE 108; RESP 18; TEMP 36.4; O2SAT 91
[2021-09-25 05:29] LABS: Basophils Percent Auto 0.2 % (0.2-1.2); Eosinophils Percent Auto 0.1 % (0-4.4); Hematocrit 28.5 % (37.0-47.0); Hemoglobin 9.3 g/dL (12.0-15.0); Immature Granulocyte Percent A 2.1 % (0-0.5); Lymphocytes Absolute Auto 1.22 K/mm3 (0.9-3.2); Lymphocytes Percent Auto 8.7 % (18.3-44.2); Mean Corpuscular HGB Conc 32.6 g/dl (32-36); Mean Corpuscular Volume 91.9 fl (80-100); Mean Platelet Volume 11.7 fl (7.4-10.4); Monocytes Absolute Auto 1.4 K/mm3 (0.1-0.6); Monocytes Percent Auto 9.7 % (2.6-8.5); Neutrophils Absolute Auto 11.1 K/mm3 (1.3-6.7); Neutrophils Percent Auto 79.2 % (45.5-73.1); Nucleated Red Blood Cells Absolute Auto 0.1 K/mm3 (0.0-0.012); Nucleated Red Blood Cells Perc 0.4 % (0.0-0.2); Platelet Count Result 235 k/mm3 (150-375); Red Cell Distribution Width 16.7 % (11.5-14.5); White Blood Count 14.1 K/mm3 (4.5-10.0)
[2021-09-25] MEDS: metroNIDAZOLE 500 MG/ISO 100ML 500 MG/100 ML BAG 100 MG IVPB ×3 (05:42→21:08)
[2021-09-25] MEDS: LEVOTHYROXINE SODIUM 75 MCG TABLET PO (06:33)
[2021-09-25] MEDS: LEVOTHYROXINE SODIUM 100 MCG TABLET PO (06:33)
[2021-09-25 07:54] LABS: Glucose Point of Care 104 mg/dl (65-105)
[2021-09-25 08:13] VITALS: O2SAT 91
[2021-09-25] MEDS: FIDAXOMICIN 200 MG TABLET PO ×2 (08:45→20:37)
[2021-09-25] MEDS: SACCHAROMYCES BOULARDII 250 MG CAPSULE PO ×2 (08:45→17:10)
[2021-09-25] MEDS: PANTOPRAZOLE 40 MG TABLET PO (08:45)
[2021-09-25] MEDS: DULoxetine HCL 20 MG CAPSULE.DR 40 MG PO (08:45)
[2021-09-25] MEDS: buPROPion HCL XL (24 HR) 150 MG TABCR PO (08:45)
[2021-09-25] MEDS: CITALOPRAM HYDROBROMIDE 20 MG TABLET 40 MG PO (08:45)
[2021-09-25] MEDS: FOLIC ACID 1 MG TABLET PO (08:45)
[2021-09-25 08:46] VITALS: PULSE 104
[2021-09-25] MEDS: carvediloL 3.125 MG TABLET PO (08:46)
[2021-09-25] MEDS: GABAPENTIN 300 MG CAPSULE PO ×2 (08:46→17:10)
[2021-09-25] MEDS: CALCIUM CARBONATE (OSCAL) 500 MG TABLET PO (08:47)
[2021-09-25] MEDS: CYANOCOBALAMIN 500 MCG TABLET PO (08:47)
[2021-09-25] MEDS: predniSONE 5 MG TABLET PO ×3 (08:48→17:10)
[2021-09-25] MEDS: busPIRone HCL 10 MG TABLET PO ×2 (08:48→17:10)
[2021-09-25] MEDS: ACETAMINOPHEN 325 MG TABLET 650 MG PO ×2 (10:29→20:37)
--- NOTE | 2021-09-25 10:52 | PCCCNOTE ---
On 09/25/21, the student, [Lissa Garrett], provided care and completed [facility] documentation on this patient. I have reviewed the student's documentation and agree with the findings.
--- NOTE | 2021-09-25 11:16 | P.PNIM_ITS ---
Progress Note: A&P Assessment and Plan (1) Septicemia: Code(s): A41.9 - Sepsis, unspecified organism Status: Acute Assessment and Plan: Patient septic on admission with fever, leukocytosis, tachycardia, lactic acidosis, and MERCEDEZ related to sepsis. Source of infection is most likely UTI * Lactic acid levels have normalized * Persistent leukocytosis. WBC 14.1 * Afebrile. * Blood cultures with growth of E. coli in 2/2 bottles, consistent with results of urine culture * Urine and blood cultures with sensitivity to Ceftriaxone * Continue 2 g IV ceftriaxone for bacteremia. * Continue to trend Lactic acid, CRP and Procalcitonin. * Pt. beginning to improve overall. (2) Urinary tract infection: Qualifiers: Hematuria presence: without hematuria Urinary tract infection type: acute cystitis Qualified Code(s): N30.00 - Acute cystitis without hematuria Code(s): N39.0 - Urinary tract infection, site not specified Status: Acute Assessment and Plan: Urine culture with growth of >100k E. coli, sensitive to ceftriaxone * Continue ceftriaxone 2 g * This is abx day #4. (3) Diarrhea: Qualifiers: Diarrhea type: infectious Qualified Code(s): A09 - Infectious gastroenteritis and colitis, unspecified Code(s): R19.7 - Diarrhea, unspecified Status: Acute Assessment and Plan: Patient with improvement in Diarrhea. * In light of increased leukocytosis, will initiate fidaxomicin and monitor the patient for progression. This is Day #3 of Fidaxomicin therapy. * Begin probiotics * Monitor stool output and overall volume status * Banatrol Plus is started TID by dietary with overall improvement as she has had only one BM in the past shift. * Will continue to monitor labs and vital signs. * Continue Flagyl. (4) Acute kidney injury: Code(s): N17.9 - Acute kidney failure, unspecified Status: Resolved Assessment and Plan: - Resolved today with Creatinine of 0.90 and BUN of 29. GFR is >60. * Renally dose medications and avoid nephrotoxins (5) Cholecystitis: Code(s): K81.9 - Cholecystitis, unspecified Status: Acute Assessment and Plan: CT of the abdomen and pelvis shows gallbladder distention with gallstones * Patient reported diffuse abdominal pain which has not resolved * HIDA scan today showed low gallbladder ejection fraction consistent with gallbladder dysfunction and/or chronic cholecystitis * General surgery consulted and will follow as outpatient. No surgical needs at this time. * Continue low-fat diet * Continue Flagyl * No surgical intervention required at this time. Will need outpatient follow- up. (6) Hypokalemia: Code(s): E87.6 - Hypokalemia Status: Acute Assessment and Plan: - Resolved. Potassium is 3.9 today. (7) Rheumatoid arthritis: Qualifiers: Rheumatoid arthritis location: unspecified site Rheumatoid factor presence: unspecified presence Qualified Code(s): M06.9 - Rheumatoid arthritis, unspecified Code(s): M06.9 - Rheumatoid arthritis, unspecified Status: Chronic Assessment and Plan: No acute issues. * Hydroxychloroquine and methotrexate on hold given sepsis. (8) Hypertension: Qualifiers: Hypertension type: unspecified Qualified Code(s): I10 - Essential (primary) hypertension Code(s): I10 - Essential (primary) hypertension Status: Chronic Assessment and Plan: Blood pressures were reviewe
--- NOTE | 2021-09-25 11:16 | PM.IMPN ---
Progress Note: A&P Assessment and Plan (1) Septicemia: Code(s): A41.9 - Sepsis, unspecified organism Status: Acute Assessment and Plan: Patient septic on admission with fever, leukocytosis, tachycardia, lactic acidosis, and MERCEDEZ related to sepsis. Source of infection is most likely UTI Lactic acid levels have normalized Persistent leukocytosis. WBC 14.1 Afebrile. Blood cultures with growth of E. coli in 2/2 bottles, consistent with results of urine culture Urine and blood cultures with sensitivity to Ceftriaxone Continue 2 g IV ceftriaxone for bacteremia. Continue to trend Lactic acid, CRP and Procalcitonin. Pt. beginning to improve overall. (2) Urinary tract infection: Qualifiers: Hematuria presence: without hematuria Urinary tract infection type: acute cystitis Qualified Code(s): N30.00 - Acute cystitis without hematuria Code(s): N39.0 - Urinary tract infection, site not specified Status: Acute Assessment and Plan: Urine culture with growth of >100k E. coli, sensitive to ceftriaxone Continue ceftriaxone 2 g This is abx day #4. (3) Diarrhea: Qualifiers: Diarrhea type: infectious Qualified Code(s): A09 - Infectious gastroenteritis and colitis, unspecified Code(s): R19.7 - Diarrhea, unspecified Status: Acute Assessment and Plan: Patient with improvement in Diarrhea. In light of increased leukocytosis, will initiate fidaxomicin and monitor the patient for progression. This is Day #3 of Fidaxomicin therapy. Begin probiotics Monitor stool output and overall volume status Banatrol Plus is started TID by dietary with overall improvement as she has had only one BM in the past shift. Will continue to monitor labs and vital signs. Continue Flagyl. (4) Acute kidney injury: Code(s): N17.9 - Acute kidney failure, unspecified Status: Resolved Assessment and Plan: - Resolved today with Creatinine of 0.90 and BUN of 29. GFR is >60. Renally dose medications and avoid nephrotoxins (5) Cholecystitis: Code(s): K81.9 - Cholecystitis, unspecified Status: Acute Assessment and Plan: CT of the abdomen and pelvis shows gallbladder distention with gallstones Patient reported diffuse abdominal pain which has not resolved HIDA scan today showed low gallbladder ejection fraction consistent with gallbladder dysfunction and/or chronic cholecystitis General surgery consulted and will follow as outpatient. No surgical needs at this time. Continue low-fat diet Continue Flagyl No surgical intervention required at this time. Will need outpatient follow-up. (6) Hypokalemia: Code(s): E87.6 - Hypokalemia Status: Acute Assessment and Plan: - Resolved. Potassium is 3.9 today. (7) Rheumatoid arthritis: Qualifiers: Rheumatoid arthritis location: unspecified site Rheumatoid factor presence: unspecified presence Qualified Code(s): M06.9 - Rheumatoid arthritis, unspecified Code(s): M06.9 - Rheumatoid arthritis, unspecified Status: Chronic Assessment and Plan: No acute issues. Hydroxychloroquine and methotrexate on hold given sepsis. (8) Hypertension: Qualifiers: Hypertension type: unspecified Qualified Code(s): I10 - Essential (primary) hypertension Code(s): I10 - Essential (primary) hypertension Status: Chronic Assessment and Plan: Blood pressures were reviewed and they are stable. Last BP 119/73 Monitor closely as losartan is being held due to acute kidney injury. (9) Hypothyroidism: Qualifiers: Hypothyroidism type: unspecified Qualified Code(s): E03.9 - Hypothyroidism, unspecified Code(s): E03.9 - Hypothyroidism, unspecified Status: Acute Assessment and Plan: TSH is within normal limits Continue levothyroxine (10) Type 2 diabetes mellitus: Qualifie
--- NOTE | 2021-09-25 11:30 | PCNFU ---
Nutrition Follow-Up Complete: Inadequate Oral Intake as related to N/V as evidenced by NPO Goal: Meet estimated nutritional needs Patient is progressing towards goal. We will continue current goal. Pt current nutrition is Low Fiber with Ensure Compact BID. Last recorded weight is 78 kg, up from 73.4 kg on admit. Bowel Motility: +BM reported 09/24 Labs Reviewed:Hct 28.5,Hgb 9.3 Meds Noted:Flagyl, Protonix, Prednisone, Florastor,Vit B12, Cymbalta, Oscal, Buspar, Wellbutrin, Neurontin, Lidoderm,Synthroid, Coreg, Dificid ,Folic Acid,Celexa Skin: WNL Additional Notes: Nutrition follow up. Patient current on low fat diet. Oral intake improving to about 50% of meal. Banatrol Plus added yesterday for stool bulking. Diarrhea has improved. Dietary Supplements of Ensure Compact are providing an additional 220 kcals and 9 gms protein. Agree with diet orders. Monitoring: Will monitor every 5 days.
[2021-09-25 12:09] LABS: Glucose Point of Care 193 mg/dl (65-105)
[2021-09-25] MEDS: cefTRIAXone 2 GM in SODIUM CHLORIDE 0.9% IV 100 ML 200 ML IVPB (12:27)
[2021-09-25 14:00] VITALS: BP 121/68; PULSE 93; RESP 18; TEMP 36.2; O2SAT 93
[2021-09-25 16:01] LABS: Glucose Point of Care 199 mg/dl (65-105)
[2021-09-25 17:21] LABS: Alanine Aminotransferase 13 U/L (4-35); Albumin Level 2.5 g/dL (3.5-5.1); Alkaline Phosphatase 97 U/L (38-126); Anion Gap 5 mmol/L (8-16); Aspartate Amino Transferase 25 U/L (14-36); Bilirubin,Total 0.4 mg/dL (0.2-1.3); Blood Urea Nitrogen 21 mg/dL (7-17); Carbon Dioxide 29 mmol/L (22-30); Chloride 100 mmol/L (98-107); Estimated CRCL calculation 51 ml/min; Estimated Glomerular Filt Rate > 60; Glucose 244 mg/dL (65-110); Sodium 134 mmol/L (137-145)
[2021-09-25 19:30] VITALS: BP 140/82; PULSE 97; RESP 17; TEMP 36.6; O2SAT 93
[2021-09-25 19:54] LABS: Glucose Point of Care 250 mg/dl (65-105)
[2021-09-26] MEDS: metroNIDAZOLE 500 MG/ISO 100ML 500 MG/100 ML BAG 100 MG IVPB ×3 (05:05→21:06)
[2021-09-26 05:15] LABS: Basophils Percent Auto 0.2 % (0.2-1.2); Eosinophils Absolute Auto 0.1 K/mm3 (0-0.3); Eosinophils Percent Auto 0.8 % (0-4.4); Hematocrit 28.9 % (37.0-47.0); Hemoglobin 9.4 g/dL (12.0-15.0); Immature Granulocyte Absolute 0.24 K/mm3 (0.00-0.031); Immature Granulocyte Percent A 1.9 % (0-0.5); Lymphocytes Absolute Auto 1.11 K/mm3 (0.9-3.2); Lymphocytes Percent Auto 8.6 % (18.3-44.2); Mean Corpuscular HGB Conc 32.5 g/dl (32-36); Mean Corpuscular Hemoglobin 29.9 pg (26-34); Mean Platelet Volume 11.5 fl (7.4-10.4); Monocytes Absolute Auto 0.9 K/mm3 (0.1-0.6); Neutrophils Absolute Auto 10.5 K/mm3 (1.3-6.7); Neutrophils Percent Auto 81.5 % (45.5-73.1); Nucleated Red Blood Cells Perc 0.3 % (0.0-0.2); Platelet Count Result 257 k/mm3 (150-375); Red Blood Count 3.14 M/mm3 (4.2-5.4); White Blood Count 12.9 K/mm3 (4.5-10.0)
[2021-09-26 05:26] LABS: Alanine Aminotransferase 11 U/L (4-35); Albumin Level 2.4 g/dL (3.5-5.1); Alkaline Phosphatase 86 U/L (38-126); Anion Gap 2 mmol/L (8-16); Aspartate Amino Transferase 19 U/L (14-36); Bilirubin,Total 0.2 mg/dL (0.2-1.3); Blood Urea Nitrogen 17 mg/dL (7-17); Calcium 7.8 mg/dL (8.4-10.2); Carbon Dioxide 31 mmol/L (22-30); Chloride 101 mmol/L (98-107); Estimated CRCL calculation 56 ml/min; Estimated Glomerular Filt Rate > 60; Glucose 108 mg/dL (65-110); Magnesium 1.8 mg/dL (1.6-2.3); Potassium 2.7 mmol/L (3.4-5.0); Sodium 134 mmol/L (137-145)
[2021-09-26 05:52] VITALS: BP 121/64; PULSE 96; RESP 16; TEMP 36.2; O2SAT 93
[2021-09-26] MEDS: LEVOTHYROXINE SODIUM 75 MCG TABLET PO (06:05)
[2021-09-26] MEDS: LEVOTHYROXINE SODIUM 100 MCG TABLET PO (06:05)
[2021-09-26] MEDS: POTASSIUM CHLORIDE 20 MEQ TABLET 80 MEQ PO (06:06)
[2021-09-26 07:42] LABS: Glucose Point of Care 93 mg/dl (65-105)
[2021-09-26 08:15] VITALS: PULSE 92
[2021-09-26] MEDS: carvediloL 3.125 MG TABLET PO (08:15)
[2021-09-26] MEDS: GABAPENTIN 300 MG CAPSULE PO ×2 (08:15→17:57)
[2021-09-26] MEDS: CALCIUM CARBONATE (OSCAL) 500 MG TABLET PO (08:15)
[2021-09-26] MEDS: FOLIC ACID 1 MG TABLET PO (08:15)
[2021-09-26] MEDS: SACCHAROMYCES BOULARDII 250 MG CAPSULE PO ×2 (08:15→17:56)
[2021-09-26] MEDS: DULoxetine HCL 20 MG CAPSULE.DR 40 MG PO (08:15)
[2021-09-26] MEDS: busPIRone HCL 10 MG TABLET PO ×2 (08:15→17:56)
[2021-09-26] MEDS: PANTOPRAZOLE 40 MG TABLET PO (08:16)
[2021-09-26] MEDS: CITALOPRAM HYDROBROMIDE 20 MG TABLET 40 MG PO (08:16)
[2021-09-26] MEDS: predniSONE 5 MG TABLET PO ×3 (08:16→17:56)
[2021-09-26] MEDS: FIDAXOMICIN 200 MG TABLET PO ×2 (08:16→21:06)
[2021-09-26] MEDS: CYANOCOBALAMIN 500 MCG TABLET PO (08:16)
[2021-09-26] MEDS: buPROPion HCL XL (24 HR) 150 MG TABCR PO (08:16)
[2021-09-26] MEDS: ACETAMINOPHEN 325 MG TABLET 650 MG PO ×2 (08:17→19:15)
[2021-09-26 11:43] LABS: Glucose Point of Care 193 mg/dl (65-105)
[2021-09-26] MEDS: cefTRIAXone 2 GM in SODIUM CHLORIDE 0.9% IV 100 ML 200 ML IVPB (12:14)
--- NOTE | 2021-09-26 13:10 | P.PNIM_ITS ---
Progress Note: A&P Assessment and Plan (1) Septicemia: Code(s): A41.9 - Sepsis, unspecified organism Status: Acute Assessment and Plan: Patient septic on admission with fever, leukocytosis, tachycardia, lactic acidosis, and MERCEDEZ related to sepsis. Source of infection is most likely UTI * Lactic acid levels have normalized * Persistent leukocytosis. WBC 14.1 * Afebrile. * Blood cultures with growth of E. coli in 2/2 bottles, consistent with results of urine culture * Urine and blood cultures with sensitivity to Ceftriaxone * Continue 2 g IV ceftriaxone for bacteremia. * Continue to trend Lactic acid, CRP and Procalcitonin. * Pt. beginning to improve overall. (2) Urinary tract infection: Qualifiers: Hematuria presence: without hematuria Urinary tract infection type: acute cystitis Qualified Code(s): N30.00 - Acute cystitis without hematuria Code(s): N39.0 - Urinary tract infection, site not specified Status: Acute Assessment and Plan: Urine culture with growth of >100k E. coli, sensitive to ceftriaxone * Continue ceftriaxone 2 g * This is abx day #4. * Cipro appropriate for po treatment on discharge. (3) Diarrhea: Qualifiers: Diarrhea type: infectious Qualified Code(s): A09 - Infectious gastroenteritis and colitis, unspecified Code(s): R19.7 - Diarrhea, unspecified Status: Acute Assessment and Plan: Patient with improvement in Diarrhea. * In light of increased leukocytosis, will initiate fidaxomicin and monitor the patient for progression. This is Day #3 of Fidaxomicin therapy. * Begin probiotics * Monitor stool output and overall volume status * Banatrol Plus is started TID by dietary with overall improvement as she has had only one BM in the past shift. * Will continue to monitor labs and vital signs. * Continue Flagyl. (4) Acute kidney injury: Code(s): N17.9 - Acute kidney failure, unspecified Status: Resolved Assessment and Plan: - Resolved today with Creatinine of 0.90 and BUN of 29. GFR is >60. * Renally dose medications and avoid nephrotoxins (5) Cholecystitis: Code(s): K81.9 - Cholecystitis, unspecified Status: Acute Assessment and Plan: CT of the abdomen and pelvis shows gallbladder distention with gallstones * Patient reported diffuse abdominal pain which has not resolved * HIDA scan today showed low gallbladder ejection fraction consistent with gallbladder dysfunction and/or chronic cholecystitis * General surgery consulted and will follow as outpatient. No surgical needs at this time. * Continue low-fat diet * Continue Flagyl * No surgical intervention required at this time. Will need outpatient follow-up. (6) Hypokalemia: Code(s): E87.6 - Hypokalemia Status: Acute Assessment and Plan: - Decreased to 2.7 today. Pt. received po supplementation and we will reassess this afternoon. (7) Rheumatoid arthritis: Qualifiers: Rheumatoid arthritis location: unspecified site Rheumatoid factor presence: unspecified presence Qualified Code(s): M06.9 - Rheumatoid arthritis, unspecified Code(s): M06.9 - Rheumatoid arthritis, unspecified Status: Chronic Assessment and Plan: No acute issues. * Hydroxychloroquine and methotrexate on hold given sepsis. (8) Hypertension: Qualifiers: Hypertension type: unspecified Qualified Code(s): I10 - Essential (primary) hypertension Code(s): I10 - [facility]
--- NOTE | 2021-09-26 13:10 | PM.IMPN ---
Progress Note: A&P Assessment and Plan (1) Septicemia: Code(s): A41.9 - Sepsis, unspecified organism Status: Acute Assessment and Plan: Patient septic on admission with fever, leukocytosis, tachycardia, lactic acidosis, and MERCEDEZ related to sepsis. Source of infection is most likely UTI Lactic acid levels have normalized Persistent leukocytosis. WBC 14.1 Afebrile. Blood cultures with growth of E. coli in 2/2 bottles, consistent with results of urine culture Urine and blood cultures with sensitivity to Ceftriaxone Continue 2 g IV ceftriaxone for bacteremia. Continue to trend Lactic acid, CRP and Procalcitonin. Pt. beginning to improve overall. (2) Urinary tract infection: Qualifiers: Hematuria presence: without hematuria Urinary tract infection type: acute cystitis Qualified Code(s): N30.00 - Acute cystitis without hematuria Code(s): N39.0 - Urinary tract infection, site not specified Status: Acute Assessment and Plan: Urine culture with growth of >100k E. coli, sensitive to ceftriaxone Continue ceftriaxone 2 g This is abx day #4. Cipro appropriate for po treatment on discharge. (3) Diarrhea: Qualifiers: Diarrhea type: infectious Qualified Code(s): A09 - Infectious gastroenteritis and colitis, unspecified Code(s): R19.7 - Diarrhea, unspecified Status: Acute Assessment and Plan: Patient with improvement in Diarrhea. In light of increased leukocytosis, will initiate fidaxomicin and monitor the patient for progression. This is Day #3 of Fidaxomicin therapy. Begin probiotics Monitor stool output and overall volume status Banatrol Plus is started TID by dietary with overall improvement as she has had only one BM in the past shift. Will continue to monitor labs and vital signs. Continue Flagyl. (4) Acute kidney injury: Code(s): N17.9 - Acute kidney failure, unspecified Status: Resolved Assessment and Plan: - Resolved today with Creatinine of 0.90 and BUN of 29. GFR is >60. Renally dose medications and avoid nephrotoxins (5) Cholecystitis: Code(s): K81.9 - Cholecystitis, unspecified Status: Acute Assessment and Plan: CT of the abdomen and pelvis shows gallbladder distention with gallstones Patient reported diffuse abdominal pain which has not resolved HIDA scan today showed low gallbladder ejection fraction consistent with gallbladder dysfunction and/or chronic cholecystitis General surgery consulted and will follow as outpatient. No surgical needs at this time. Continue low-fat diet Continue Flagyl No surgical intervention required at this time. Will need outpatient follow-up. (6) Hypokalemia: Code(s): E87.6 - Hypokalemia Status: Acute Assessment and Plan: - Decreased to 2.7 today. Pt. received po supplementation and we will reassess this afternoon. (7) Rheumatoid arthritis: Qualifiers: Rheumatoid arthritis location: unspecified site Rheumatoid factor presence: unspecified presence Qualified Code(s): M06.9 - Rheumatoid arthritis, unspecified Code(s): M06.9 - Rheumatoid arthritis, unspecified Status: Chronic Assessment and Plan: No acute issues. Hydroxychloroquine and methotrexate on hold given sepsis. (8) Hypertension: Qualifiers: Hypertension type: unspecified Qualified Code(s): I10 - Essential (primary) hypertension Code(s): I10 - Essential (primary) hypertension Status: Chronic Assessment and Plan: Blood pressures were reviewed and they are stable. Last BP 119/73 Monitor closely as losartan is being held due to acute kidney injury. (9) Hypothyroidism: Qualifiers: Hypothyroidism type: unspecified Qualified Code(s): E03.9 - Hypothyroidism, unspecified Code(s): E03.9 - Hypothyroidism, unspecified Status: Acute Assessment and Plan
[2021-09-26 14:00] VITALS: BP 117/57; PULSE 94; RESP 19; TEMP 36.8; O2SAT 90
[2021-09-26 14:07] LABS: Magnesium 1.9 mg/dL (1.6-2.3); Potassium 3.5 mmol/L (3.4-5.0)
[2021-09-26 15:05] LABS: EDCOVIDSCREEN Negative (Negative)
[2021-09-26 16:10] LABS: Glucose Point of Care 175 mg/dl (65-105)
[2021-09-26 20:27] VITALS: BP 117/74; PULSE 100; RESP 16; TEMP 36.6; O2SAT 98
[2021-09-26 21:31] LABS: Glucose Point of Care 161 mg/dl (65-105)
--- NOTE | 2021-09-27 03:04 | PC.NURSE ---
Daylight Savings Time For Daylight Savings Time Ending in the Fall - Clocks are moved back. For Daylight Savings Time Beginning in the Spring - Clocks are moved ahead. For [facility], the time of change occurs at 0200 hrs. Time is taken from the magnetic observer. This entry on the patient's chart recognizes the change in time reflected during documentation. Example: 2 entries for vital signs may be charted for 0200 hrs.
[2021-09-27 05:09] LABS: Basophils Percent Auto 0.2 % (0.2-1.2); Eosinophils Absolute Auto 0.1 K/mm3 (0-0.3); Eosinophils Percent Auto 0.8 % (0-4.4); Hematocrit 28.7 % (37.0-47.0); Immature Granulocyte Absolute 0.29 K/mm3 (0.00-0.031); Lymphocytes Absolute Auto 1.04 K/mm3 (0.9-3.2); Lymphocytes Percent Auto 7.3 % (18.3-44.2); Mean Corpuscular HGB Conc 31.4 g/dl (32-36); Mean Corpuscular Hemoglobin 29.9 pg (26-34); Mean Corpuscular Volume 95.3 fl (80-100); Mean Platelet Volume 11.2 fl (7.4-10.4); Monocytes Absolute Auto 0.9 K/mm3 (0.1-0.6); Monocytes Percent Auto 6.3 % (2.6-8.5); Neutrophils Percent Auto 83.4 % (45.5-73.1); Nucleated Red Blood Cells Perc 0.2 % (0.0-0.2); Platelet Count Result 257 k/mm3 (150-375); Red Blood Count 3.01 M/mm3 (4.2-5.4); Red Cell Distribution Width 17.7 % (11.5-14.5); White Blood Count 14.3 K/mm3 (4.5-10.0)
[2021-09-27 05:28] LABS: Alanine Aminotransferase 11 U/L (4-35); Albumin Level 2.4 g/dL (3.5-5.1); Alkaline Phosphatase 74 U/L (38-126); Anion Gap 3 mmol/L (8-16); Aspartate Amino Transferase 22 U/L (14-36); Bilirubin,Total 0.4 mg/dL (0.2-1.3); Blood Urea Nitrogen 16 mg/dL (7-17); Calcium 7.7 mg/dL (8.4-10.2); Carbon Dioxide 29 mmol/L (22-30); Chloride 103 mmol/L (98-107); Estimated CRCL calculation 72 ml/min; Estimated Glomerular Filt Rate > 60; Glucose 98 mg/dL (65-110); Potassium 3.7 mmol/L (3.4-5.0); Sodium 135 mmol/L (137-145)
[2021-09-27] MEDS: metroNIDAZOLE 500 MG/ISO 100ML 500 MG/100 ML BAG 100 MG IVPB (05:38)
[2021-09-27] MEDS: LEVOTHYROXINE SODIUM 100 MCG TABLET PO (05:38)
[2021-09-27] MEDS: LEVOTHYROXINE SODIUM 75 MCG TABLET PO (05:38)
[2021-09-27 05:46] VITALS: BP 131/77; PULSE 102; RESP 16; TEMP 36.6; O2SAT 96
[2021-09-27 07:37] LABS: Glucose Point of Care 100 mg/dl (65-105)
--- NOTE | 2021-09-27 07:41 | P.DS_ITS ---
DS: Admitting Diagnosis Discharge Date 09/27/2021 Admitting Diagnosis 1) Sepsis 2) UTI 3) MERCEDEZ 4) Cholecystitis 5) Hypokalemia 6) Hypoglycemia 7) CHF 8) RA 9) HTN 10) Depression and anxiety 11) Hypothyroidism 12) Type 2 DM DS: Discharge Diagnosis Discharge Diagnosis (1) Septicemia: Code(s): A41.9 - Sepsis, unspecified organism Status: Resolved Assessment and Plan: Patient septic on admission with fever, leukocytosis, tachycardia, lactic acidosis, and MERCEDEZ related to sepsis. Source of infection is most likely UTI * Lactic acid levels have normalized * Persistent leukocytosis. WBC 14.1 * Afebrile. * Blood cultures with growth of E. coli in 2/2 bottles, consistent with results of urine culture * Urine and blood cultures with sensitivity to Ceftriaxone * Continue 2 g IV ceftriaxone for bacteremia. * Continue to trend Lactic acid, CRP and Procalcitonin. * Pt. beginning to improve overall. * RESOLVED - Has been treated with Rocephin. Both urine and blood cultures grew out E.coli and are sensitive to Cipro. Pt. not meeting SIRS/Sepsis criteria, therefore will be sent to [facility] today with prescription for Cipro. (2) Urinary tract infection: Qualifiers: Hematuria presence: without hematuria Urinary tract infection type: acute cystitis Qualified Code(s): N30.00 - Acute cystitis without hematuria Code(s): N39.0 - Urinary tract infection, site not specified Status: Acute Assessment and Plan: Urine culture with growth of >100k E. coli, sensitive to ceftriaxone * Continue ceftriaxone 2 g * This is abx day #4. * Cipro appropriate for po treatment on discharge. (3) Diarrhea: Qualifiers: Diarrhea type: infectious Qualified Code(s): A09 - Infectious gastroenteritis and colitis, unspecified Code(s): R19.7 - Diarrhea, unspecified Status: Acute Assessment and Plan: Patient with improvement in Diarrhea. * In light of increased leukocytosis, will initiate fidaxomicin and monitor the patient for progression. This is Day #3 of Fidaxomicin therapy. * Begin probiotics * Monitor stool output and overall volume status * Banatrol Plus is started TID by dietary with overall improvement as she has had only one BM in the past shift. * Will continue to monitor labs and vital signs. * Continue Fidazomicin for a total of 10 days and discontinue Flagyl on discharge. Will continue Banatrol. (4) Acute kidney injury: Code(s): N17.9 - Acute kidney failure, unspecified Status: Resolved Assessment and Plan: - Resolved today with Creatinine of 0.90 and BUN of 29. GFR is >60. * Renally dose medications and avoid nephrotoxins RESOLVED (5) Cholecystitis: Code(s): K81.9 - Cholecystitis, unspecified Status: Acute Assessment and Plan: CT of the abdomen and pelvis shows gallbladder distention with gallstones * Patient reported diffuse abdominal pain which has not resolved * HIDA scan today showed low gallbladder ejection fraction consistent with gallbladder dysfunction and/or chronic cholecystitis * General surgery consulted and will follow as outpatient. No surgical needs at this time. * Continue low-fat diet * Continue Flagyl * No surgical intervention required at this time. Will need outpatient follow- up with Dr. Baez. (6) Hypokalemia: Code(s): E87.6 - Hypokalemia Status: Resolved Assessment and Plan: - RESOLVED (7) Rheumatoid arthritis: Qualifiers: R
--- NOTE | 2021-09-27 07:41 | PM.DS ---
DS: Admitting Diagnosis Discharge Date 09/27/2021 Admitting Diagnosis 1) Sepsis 2) UTI 3) MERCEDEZ 4) Cholecystitis 5) Hypokalemia 6) Hypoglycemia 7) CHF 8) RA 9) HTN 10) Depression and anxiety 11) Hypothyroidism 12) Type 2 DM DS: Discharge Diagnosis Discharge Diagnosis (1) Septicemia: Code(s): A41.9 - Sepsis, unspecified organism Status: Resolved Assessment and Plan: Patient septic on admission with fever, leukocytosis, tachycardia, lactic acidosis, and MERCEDEZ related to sepsis. Source of infection is most likely UTI Lactic acid levels have normalized Persistent leukocytosis. WBC 14.1 Afebrile. Blood cultures with growth of E. coli in 2/2 bottles, consistent with results of urine culture Urine and blood cultures with sensitivity to Ceftriaxone Continue 2 g IV ceftriaxone for bacteremia. Continue to trend Lactic acid, CRP and Procalcitonin. Pt. beginning to improve overall. RESOLVED - Has been treated with Rocephin. Both urine and blood cultures grew out E.coli and are sensitive to Cipro. Pt. not meeting SIRS/Sepsis criteria, therefore will be sent to [facility] today with prescription for Cipro. (2) Urinary tract infection: Qualifiers: Hematuria presence: without hematuria Urinary tract infection type: acute cystitis Qualified Code(s): N30.00 - Acute cystitis without hematuria Code(s): N39.0 - Urinary tract infection, site not specified Status: Acute Assessment and Plan: Urine culture with growth of >100k E. coli, sensitive to ceftriaxone Continue ceftriaxone 2 g This is abx day #4. Cipro appropriate for po treatment on discharge. (3) Diarrhea: Qualifiers: Diarrhea type: infectious Qualified Code(s): A09 - Infectious gastroenteritis and colitis, unspecified Code(s): R19.7 - Diarrhea, unspecified Status: Acute Assessment and Plan: Patient with improvement in Diarrhea. In light of increased leukocytosis, will initiate fidaxomicin and monitor the patient for progression. This is Day #3 of Fidaxomicin therapy. Begin probiotics Monitor stool output and overall volume status Banatrol Plus is started TID by dietary with overall improvement as she has had only one BM in the past shift. Will continue to monitor labs and vital signs. Continue Fidazomicin for a total of 10 days and discontinue Flagyl on discharge. Will continue Banatrol. (4) Acute kidney injury: Code(s): N17.9 - Acute kidney failure, unspecified Status: Resolved Assessment and Plan: - Resolved today with Creatinine of 0.90 and BUN of 29. GFR is >60. Renally dose medications and avoid nephrotoxins RESOLVED (5) Cholecystitis: Code(s): K81.9 - Cholecystitis, unspecified Status: Acute Assessment and Plan: CT of the abdomen and pelvis shows gallbladder distention with gallstones Patient reported diffuse abdominal pain which has not resolved HIDA scan today showed low gallbladder ejection fraction consistent with gallbladder dysfunction and/or chronic cholecystitis General surgery consulted and will follow as outpatient. No surgical needs at this time. Continue low-fat diet Continue Flagyl No surgical intervention required at this time. Will need outpatient follow-up with Dr. Baez. (6) Hypokalemia: Code(s): E87.6 - Hypokalemia Status: Resolved Assessment and Plan: - RESOLVED (7) Rheumatoid arthritis: Qualifiers: Rheumatoid arthritis location: unspecified site Rheumatoid factor presence: unspecified presence Qualified Code(s): M06.9 - Rheumatoid arthritis, unspecified Code(s): M06.9 - Rheumatoid arthritis, unspecified Status: Chronic Assessment and Plan: No acute issues. Hydroxychloroquine and methotrexate were on hold given acute sepsis on arrival and admission. Will restart at discharge. (8) Hypertension: Qualifiers: Hypertension type:
[2021-09-27] MEDS: GABAPENTIN 300 MG CAPSULE PO (08:08)
[2021-09-27] MEDS: ERGOCALCIFEROL 50,000 UNIT CAPSULE 50000 UNITS PO (08:08)
[2021-09-27] MEDS: CYANOCOBALAMIN 500 MCG TABLET PO (08:08)
[2021-09-27] MEDS: FIDAXOMICIN 200 MG TABLET PO (08:09)
[2021-09-27] MEDS: PANTOPRAZOLE 40 MG TABLET PO (08:09)
[2021-09-27] MEDS: SACCHAROMYCES BOULARDII 250 MG CAPSULE PO (08:09)
[2021-09-27] MEDS: predniSONE 5 MG TABLET PO ×2 (08:09→11:42)
[2021-09-27] MEDS: DULoxetine HCL 20 MG CAPSULE.DR 40 MG PO (08:09)
[2021-09-27] MEDS: busPIRone HCL 10 MG TABLET PO (08:09)
[2021-09-27] MEDS: FOLIC ACID 1 MG TABLET PO (08:09)
[2021-09-27] MEDS: CITALOPRAM HYDROBROMIDE 20 MG TABLET 40 MG PO (08:09)
[2021-09-27] MEDS: buPROPion HCL XL (24 HR) 150 MG TABCR PO (08:10)
[2021-09-27] MEDS: carvediloL 3.125 MG TABLET PO (08:10)
[2021-09-27] MEDS: CALCIUM CARBONATE (OSCAL) 500 MG TABLET PO (08:11)
[2021-09-27 11:28] LABS: Glucose Point of Care 142 mg/dl (65-105)
[2021-09-27] MEDS: cefTRIAXone 2 GM in SODIUM CHLORIDE 0.9% IV 100 ML 200 ML IVPB (11:44)
== END 2021-09-27 14:41 | DRG 872 ==
LOC: ANHED 17:37 → ANH2MED 18:12
PROVIDERS: Internal Medicine; Physician Assistant; Admitting Provider Family Medicine; Emergency Provider Emergency Medicine; PCP Nurse Practitioner; Visit Provider Nurse Practitioner Adult Health
DX: A41.51 Sepsis due to Escherichia coli [E. coli] (principal); N39.0 Urinary tract infection, site not specified; N17.9 Acute kidney failure, unspecified; K80.10 Calculus of gallbladder with chronic cholecystitis without obstruction; I31.3 Pericardial effusion (noninflammatory); R65.20 Severe sepsis without septic shock; E87.6 Hypokalemia; Z20.822 Contact with and (suspected) exposure to COVID-19; R09.02 Hypoxemia; M06.9 Rheumatoid arthritis, unspecified; E03.9 Hypothyroidism, unspecified; E11.9 Type 2 diabetes mellitus without complications; I11.0 Hypertensive heart disease with heart failure; I50.9 Heart failure, unspecified; M81.0 Age-related osteoporosis without current pathological fracture; E05.00 Thyrotoxicosis with diffuse goiter without thyrotoxic crisis or storm; F41.8 Other specified anxiety disorders; K21.9 Gastro-esophageal reflux disease without esophagitis; D64.9 Anemia, unspecified; E86.0 Dehydration; N28.1 Cyst of kidney, acquired; R19.7 Diarrhea, unspecified
CPT/HCPCS: 36415; 51701; 71045; 71046; 74176; 76775; 78227; 80048; 80053; 81001; 82550; 82948; 83605; 83690; 83735; 84132; 84145; 84443; 85025; 85027; 85055; 85610; 85730; 86140; 87040; 87077; 87086; 87088; 87186; 87426; 87502; 96365; 96366; 96367; 96368; 96375; 96376; 97110; 97161; 97165; 97530; 97535; 99285; A9270; A9537; C9803; G0378; J0131; J0295; J0696; J0780; J1940; J2270; J2405; J2543; J2805; J3370; J3480; J7030; J7040; J7512; U0003; U0005